=== PATIENT | female | born 2000 | race Caucasian/White ===

== ENCOUNTER 2022-03-31 22:28 | Emergency (ER) | payer BC, OTHER ==
--- OUTSIDE RECORDS SUMMARY | 2022-03-31 22:31 | XMS REPORT | Continuity of Care Document ---
:2000 Author Organization [facility] t Address [address] [place] [address] Care Team Providers Name Role Phone ROSANA CALLE Primary Care Physician Unavailable Rosana Calle Attending Clinician Unavailable Sanjuanita Rodriguez Attending Clinician Rhoda Berry RN Attending Clinician Unavailable SANJUANITA TRIPP Attending Clinician Unavailable SAMANTHA BOWEN Attending Clinician Unavailable Eric Dunham MD Attending Clinician ERIC DUNHAM Attending Clinician Unavailable Doctor Unassigned, [facility] Attending Clinician Unavailable Payers Payer Name Policy Type Policy Number Effective Date Expiration Date S ource Problems Condition Condition Condition Status Onset Resolution Last Treating Co mments Source Name Details Category Date Date Treatment Clinician Date No known No known Disease Unive rs active active ity of problems problems [facility] Allergies, Adverse Reactions, Alerts Allergy Allergy Status Severity Reaction(s) Onset Inactive Treating Comm ents Source Name Type Date Date Clinician NO KNOWN Drug Active Univers ALLERGIE Class ity of S [facility] Social History Social Habit Start Date Stop Date Quantity Comments Source Exposure to Not sure University SARS-CoV-2 [facility] (event) [place] History of Cigarette Smoker Universi ty of tobacco use [facility] Alcohol intake 2021-09-20 2021-09-[address] [facility] rsity of 00:00:00 00:00:00 of alcohol [facility] (finding) [place] Tobacco use and 2021-03-09 2021-03-09 Never used Universit y of exposure 00:00:00 00:00:00 [facility] Sex Assigned At [birth year] Universit y of 00:00:00 00:00:00 [facility] Smoking Status Start Date Stop Date Source Unknown if ever smoked [facility] Medical [place] Current every day smoker 2021-03-09 00:00:00 Uni versity [facility] Medications Ordered Filled Start Stop Current Ordering Indication Dosage Frequency Signature Comments Components Source Medication Medication Date Date Medication? Clinician (SIG) Name Name Cetirizine Yes Take by [facility] ([facility]) 10 3-21 mouth. ity of mg capsule 15:55: [address] Cetirizine Yes Take by [facility] (ZYRTE) 10 3-21 mouth. ity of mg capsule 15:55: [address] Cetirizine Yes Take by [facility] (ZYRTE) 10 3-21 mouth. ity of mg capsule 15:55: [address] Cetirizine Yes Take by [facility] (YRTE) 10 3-21 mouth. ity of mg capsule 15:55: [address] fluticasone Yes [id number] 2{spray Use 2 Univers propionate 3-21 } Sprays in ity of 50 00:00: each [place] mcg/actuati 00 nostril Medic al on nasal daily. Branch spray fexofenadin Yes [id number] 1{tbl} Take 1 Univers e-pseudoeph 3-21 tablet by ity of edrine 00:00: mouth 2 [place] (ANNA-D) 00 (two) Medical 60-120 mg times Branch per tablet daily. benzonatate Yes [id number] 100mg Take 1 Univers (TESSALON 3-21 capsule by ity of ANAIS) 100 00:00: mouth 3 [place] as mg capsule 00 (three) Medica l times Branch daily as needed for Cough. fluticasone Yes [id number] 2{spray Use 2 Univers propionate 3-21 } Sprays in ity of 50 00:00: each [place] mcg/actuati 00 nostril Medic al on nasal daily. Branch spray fexofenadin 0 Yes [id number] 1{tbl} Take 1 Univers e-pseudoeph 3-21 tablet by ity of edrine 00:00: mouth 2 [place] (ANNA-D) 00 (two) Medical 60-120 mg times Branch per tablet daily. benzonatate 2021-0 Yes [id number] 100mg Take 1 Univers (TESSALON 3-21 capsule by ity of PERLES) 100 00:00: mouth 3 [place] as mg capsule 00 (three) Medica l times Branch daily as needed for Cough. fluticasone 0 Yes [id number] 2{spray Use 2 Univers propionate 3-21 } Sprays in ity of 50 00:00: each [place] mcg/actuati 00 nostril Medic al on nasal daily. Branch spray fexofenadin 0 Yes [id number] 1{tbl} Take 1 Univers e-pseudoeph 3-21 tablet by ity of edrine 00:00: mouth 2 [place] (ANNA-D) 00 (two) Medical 60-120 mg times Branch per tablet daily. benzonatate 2021-0 Yes [id number] 100mg Take 1 Univers (TESSALON 3-21 capsule by ity of PERLES) 100 00:00: mouth 3 [place] as mg capsule 00 (three) Medica l times Branch daily as needed for Cough. fluticasone 2021-0 Yes [id number] 2{spray Use 2 Univers propionate 3-21 } Sprays in ity of 50 00:00: each [place] mcg/actuati 00 nostril Medic al on nasal daily. Branch spray fexofenadin 2021-0 Yes [id number] 1{tbl} Take 1 Univers e-pseudoeph 3-21 tablet by ity of edrine 00:00: mouth 2 [place] (ANNA-D) 00 (two) Medical 60-120 mg times Branch per tablet daily. benzonatate 2021-0 Yes [id number] 100mg Take 1 Univers (TESSALON 3-21 capsule by ity of PERLES) 100 00:00: mouth 3 [place] as mg capsule 00 (three) Medica l times Branch daily as needed for Cough. sulfamethox 2020- No [id number] 1{tbl} Take 1 Univers azole-trime 04-24 09-30 tablet by it y of thoprim 00:00: 04:59 mouth 2 [place] (BACTRIM 00 :00 (two) Medical DS) 800-160 times Branch mg per daily for tablet 7 days. doxycycline 2020- No [id number] 100mg Take 1 Univers hyclate 100 03-09 08- tablet by it y of mg tablet 00:00: 04:59 [place] 2 [place] :[place] (two) Medical times Branch daily for 14 days. PARoxetine Yes 10mg Take 10 mg U nivers 10 mg 7-14 by mouth ity of tablet 00:00: every [place] [address] morning. Medical Branch PARoxetine Yes 10mg Take 10 mg U nivers 10 mg 7-14 by mouth ity of tablet 00:00: every [place] morning. Medical Branch PARoxetine Yes 10mg Take 10 mg U nivers 10 mg 7-14 by mouth ity of tablet 00:00: every [place] [address] morning. Medical Branch PARoxetine Yes 10mg Take 10 mg U nivers 10 mg 7-14 by mouth ity of tablet 00:00: every [place] morning. Medical Branch PARoxetine Yes 10mg Take 10 mg U nivers 10 mg 7-14 by mouth ity of tablet 00:00: every [place] morning. Medical Branch PARoxetine Yes 10mg Take 10 mg U nivers 10 mg 7-14 by mouth ity of tablet 00:00: every [place] morning. Medical Branch AUROVELA FE Yes 1{tbl} Take 1 Un minnie 1-20, 28, 1 6-09 tablet by ity of mg-20 mcg 00:00: mouth [place] (21)/75 mg 00 daily. Medical (7) tablet Branch AUROVELA FE Yes 1{tbl} Take 1 Un minnie 1-20, 28, 1 6-09 tablet by ity of mg-20 mcg 00:00: mouth [place] (21)/75 mg 00 daily. Medical (7) tablet Branch AUROVELA FE Yes 1{tbl} Take 1 Un minnie 1-20, 28, 1 6-09 tablet by ity of mg-20 mcg 00:00: mouth [place] (21)/75 mg 00 daily. Medical (7) tablet Branch AUROVELA FE Yes 1{tbl} Take 1 Un minnie 1-20, 28, 1 6-09 tablet by ity of mg-20 mcg 00:00: mouth [place] (21)/75 mg 00 daily. Medical (7) tablet Branch AUROVELA FE Yes 1{tbl} Take 1 Un minnie 1-20, 28, 1 6-09 tablet by ity of mg-20 mcg 00:00: mouth [place] (21)/75 mg 00 daily. Medical (7) tablet Branch AUROVELA FE Yes 1{tbl} Take 1 Un minnie 1-20, 28, 1 6-09 tablet by ity of mg-20 mcg 00:00: mouth [place] (21)/75 mg 00 daily. Medical (7) tablet Branch Paxil Paxil 2018-08 Yes Rosana 1 tablet Common 1-15 [place] in [facility] 00:00: morning - [facility] naproxen Yes [id number] 375mg Take 1 U nivers 375 mg 1-31 tablet by ity of tablet 00:00: mouth 2 (two) Medical times Branch daily with meals. naproxen Yes [id number] 375mg Take 1 U nivers 375 mg 1-31 tablet by ity of tablet 00:00: mouth 2 (two) Medical times Branch daily with meals. naproxen Yes [id number] 375mg Take 1 U nivers 375 mg 1-31 tablet by ity of tablet 00:00: mouth 2 [place] (two) Medical times Branch daily with meals. naproxen Yes [id number] 375mg Take 1 U nivers 375 mg 1-31 tablet by ity of tablet 00:00: mouth 2 [place] 00 (two) Medical times Branch daily with meals. Lo Loestrin Lo Loestrin Yes Rosana TK 1 T PO Common Fe Fe [place] QD [facility] Zyrtec Zyrtec Yes Rosana 1 tablet Common Allergy Allergy [place] [facility] Immunizations Ordered Immunization Filled Immunization Date Status Commen ts Source Name Name Meningoccal MCV4 Meningoccal MCV4 2019-04-28 Completed Co mmon Spirit 00:00:00 [facility] Vital Signs Vital Name Observation Time Observation Value Comments Source Systolic blood 2021-10-21 20:55:00 103 mm[Hg] Univer sity of pressure [facility] Diastolic blood 2021-10-21 20:55:00 67 mm[Hg] Unive rsity of pressure [facility] Heart rate 2021-10-21 20:55:00 77 /min Universi ty of [facility] Body temperature 2021-10-21 20:55:00 36.56 Rosario Univ ersity of [facility] Branch Respiratory rate 2021-10-21 20:55:00 18 /min Univ ersity of [facility] Body height 2021-10-21 20:55:00 175.3 cm Universi ty of [place] Medical [place] Body weight 2021-10-21 20:55:00 63.549 kg Universi ty of [place] [facility] Branch BMI 2021-10-21 20:55:00 20.69 kg/m2 Universi ty of [place] [facility] Branch Oxygen saturation in 2021-10-21 20:55:00 97 /min University of Arterial blood by [facility] Pulse oximetry Branch Systolic blood 2021-03-09 16:22:00 101 mm[Hg] Univer sity of [facility] Diastolic blood 2021-03-09 16:22:00 66 mm[Hg] Unive rsity of pressure [facility] Heart rate 2021-03-09 16:22:00 90 /min Universi ty of [place] [facility] [place] Body temperature 2021-03-09 16:22:00 36.94 Rosario Univ ersity of [facility] Branch Respiratory rate 2021-03-09 16:22:00 16 /min Univ ersity of [facility] Branch Body height 2021-03-09 16:22:00 175.3 cm Universi ty of [place] [facility] Body weight 2021-03-09 16:22:00 68.04 kg Universi ty of [place] [facility] BMI 2021-03-09 16:22:00 22.15 kg/m2 Universi ty of [facility] Branch Oxygen saturation in 2021-03-09 16:22:00 98 /min University of Arterial blood by [facility] Pulse oximetry [place] Procedures Procedure Date / Time Performed Performing Clinician [facility] e ASSIGNMENT OF BENEFITS 2021-03-09 16:12:50 Doctor Unassigned, No [facility] Name Medical Branch Encounters Start End Encounter Admission Attending Care Care Encounter Source Date/Time Date/Time Type Type Clinicians Facility Department ID 2022-01-10 Outpatient [place], STLMLC STLC [id number] Common 08:40:00 Rosana 61738 [facility] 2021-08-28 Outpatient [place], STLMLC STLC [id number] Common 11:35:45 Rosana 23575 [facility] 2021-08-28 Outpatient [place], STLMLC STLC [id number] Common 11:14:19 Rosana 10930 [facility] 2022-01-07 2022-01-07 ambulatory STLC STLC [id number] Common 00:00:00 00:00:00 [facility] 2021-12-27 2021-12-27 ambulatory STLC STLC [id number] Common 00:00:00 00:00:00 [facility] 2021-11-17 2021-11-17 [facility] 1.2.840.114 [id number] Univers 00:00:00 00:00:00 [facility] [id number] i ty of [place] [id number] Anatoly as KOFI?BLEA [phone] [address] MEDICAL OFFICE BUILDING 2021-10-22 2021-10-22 Letter MERRY Berry 1.2.840.114 [id number] Univers 00:00:00 00:00:00 (Out) Rhoda [place] [id number] it y of [facility] 4.2.7.2.686 Anatoly as [id number] [place] [address] Branch 2021-10-21 2021-10-21 Urgent Makayla [facility] 1.2.840.114 [id number] Univers 16:00:00 16:20:00 Care [facility] [id number] i ty of [place] 4.2.7.2.686 Anatoly as KOFI?BLEA [id number] [address] MEDICAL OFFICE [facility] 2021-10-21 2021-10-21 Outpatient R [facility] [id number] Univers 16:00:00 16:17:28 SANJUANITA itopal o layne [facility] 2021-10-21 2021-10-21 Outpatient R [facility] [id number] Univers 16:00:00 16:00:00 [id number] [facility] 2021-10-21 2021-10-21 Refill [facility] 1.2.840.114 [id number] Univers 00:00:00 00:00:00 [facility] [id number] i ty of [place] 4.2.7.2.686 Anatoly as KOFI?BLEA [id number] [address] OFFICE [facility] 2021-07-09 2021-07-09 [facility] [id number] Univers 10:40:00 10:40:00 SAMANTHA [id number] [facility] 2021-04-29 2021-04-29 Letter [facility] 1.2.840.114 [id number] Univers 00:00:00 00:00:00 (Out) [facility] [id number] i ty of [place] 4.2.7.2.686 Anatoly as Kofi?Blea [id number] [address] Medical Office [facility] 2021-04-24 2021-04-24 Outpatient R [facility] [id number] Univers 13:00:00 13:00:00 [id number] [facility] 2021-04-24 2021-04-24 Outpatient R [facility] [id number] Univers 13:00:00 13:00:00 SANJUANITA martínezopal infante [facility] 2021-04-19 2021-04-19 Outpatient STLMLC STLMLC [id number] Common 00:00:00 00:00:00 [facility] 2021-04-19 2021-04-19 Outpatient STLMLC STLMLC [id number] Common 00:00:00 00:00:00 [facility] 2021-03-09 2021-03-09 Joy Dunham [facility] 1.2.840.114 [id number] Univers 11:15:26 11:35:26 Care [facility] [id number] it y of [place] 4.2.7.2.686 Anatoly as Professio [phone] [address] Office Building [facility] 2021-03-09 2021-03-09 Outpatient R CHARLA [facility] [id number] Univers 11:00:00 11:00:00 ERIC ity [facility] 2021-03-09 2021-03-09 Orders Doctor MERRY 1.2.840.114 [id number] Univers 00:00:00 00:00:00 Only Unassigned, FARRUKH [id number] [facility] 4.2.7.2.686 Anatoly as [phone] [facility] 009 [place] 2021-03-09 2021-03-09 Letter Doctor MERRY 1.2.840.114 [id number] Univers 00:00:00 00:00:00 (Out) Unassigned, FARRUKH [id number] [facility] 4.2.7.2.686 Anatoly as [phone] [facility] 044 [place] 2021-02-13 2021-02-13 Outpatient STLMLC STLMLC [id number] Common 00:00:00 00:00:00 [facility] 2021-01-29 2021-01-29 Outpatient STLMLC STLMLC [id number] Common 00:00:00 00:00:00 [facility] 2020-05-01 2020-05-01 Outpatient STLMLC STLMLC [id number] Common 00:00:00 00:00:00 [facility] 2020-02-15 2020-02-15 [facility] [id number] Common 15:15:00 15:15:00 [facility] 2020-02-15 2020-02-15 [facility] [id number] Common 15:00:00 15:00:[address] [facility] 2019-08-17 2019-08-17 [facility] [id number] Common 15:00:00 15:00:[address] [facility] 2019-07-21 2019-07-21 [facility] [id number] Common 14:00:00 14:00:[address] [facility] 2019-06-17 2019-06-17 [facility] [id number] Common 11:53:00 11:53:[address] [facility] 2019-06-10 2019-06-10 [facility] [id number] Common 13:00:00 13:00:[address] [facility] [address] [facility] 2019-04-28 2019-04-28 [facility] [id number] Common 08:20:00 08:20:[address] [facility] [address] [facility] 2018-09-07 2018-09-07 [facility] [id number] Common 16:04:00 16:04:00 [facility] 2018-09-07 2018-09-07 [facility] [id number] Common 10:13:00 10:13:00 [facility] 2018-09-02 2018-09-02 [facility] [id number] Common 11:14:00 11:14:00 [facility] 2018-08-08 2018-08-08 [facility] [id number] Common 13:30:00 13:30:00 t Urgent Urgent Care S pirit Care [facility] 2018-04-29 2018-04-29 [facility] [id number] Common 11:00:00 11:00:00 t [facility] Results This patient has no known results.
[2022-03-31] MEDS ORDERED: IBUPROFEN 200 MG TAB PO ONE (23:33)
[2022-03-31] MEDS ORDERED: IBUPROFEN 400 MG TAB ONE (23:34)
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
[2022-04-01 01:09] VITALS: TEMP 98.5
[2022-04-01 01:14] VITALS: BP 107/72; O2SAT 100
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
== END 2022-04-01 00:21 | disposition home or self-care (01) ==
LOC: ER 22:28
DX: S16.1XXA Strain of muscle, fascia and tendon at neck level, initial encounter (principal); S50.02XA Contusion of left elbow, initial encounter; V49.40XA Driver injured in collision with unspecified motor vehicles in traffic accident, initial encounter; F32.A Depression, unspecified
CPT/HCPCS: 70450; 71045; 72125; 99284

== ENCOUNTER 2022-11-27 05:53 | Emergency (ER) | payer BC ==
--- OUTSIDE RECORDS SUMMARY | 2022-11-27 05:58 | XMS REPORT | Continuity of Care Document ---
:1999 Author Organization [facility] t Address [address] [facility] [address] [place] [id number] Care Team Providers Name Role Phone ROSANA CALLE Primary Care Physician Unavailable Rosana Calle Attending Clinician Unavailable CHRIS MCCRARY Attending Clinician Unavailable Ebrahialissa POLISHER ALUMINUMChris Smith Attending Clinician Unknown, Attending Attending Clinician Unavailable Doctor Unassigned, [place] Attending Clinician Unavailable Provider, [facility] Attending Clinician Unavailable UNKNOWN, ATTENDING Attending Clinician Unavailable Sanjuanita Rodriguez Attending Clinician Rhoda Berry RN Attending Clinician Unavailable SANJUANITA TRIPP Attending Clinician Unavailable Eric Dunham MD Attending Clinician ERIC DUNHAM Attending Clinician Unavailable Payers Payer Name Policy Type Policy Number Effective Date Expiration Date S ource [employer] [place] [id number] 2018 00:00:00 [employer] [id number] 2016 Common Spiri t Blue Shield 00:00:00 [facility] Problems Condition Condition Condition Status Onset Resolution Last Treating Co mments Source Name Details Category Date Date Treatment Clinician Date Other Other Problem Active Common migraine migraine Spirit with with - [facility] status status [facility] migrainosu migrainosu Leigh kes s, not s, not Medical intractabl intractabl Ce nter e e [id number] IUD Problem Active Common contracept Spirit ion - [facility] Viral Other Problem Active Common disease viral Spirit agents as - [facility] the cause [facility] Medical classified Center elsewhere Seasonal Seasonal Problem Active Commo n allergic allergic Spirit rhinitis rhinitis, - [facility] unspecifie [facility] [id number] 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 [facility] [id number] Skin Problem Active Common infection [facility] [id number] Pelvic Problem Active Common pain [facility] [id number] Common Problem Active Common cold [facility] Dysthymia Dysthymic Problem Active Com mon disorder [facility] [id number] Cough Problem Active Common Spirit [facility] Irritable Irritable Problem Active Com mon bowel bowel Spirit syndrome syndrome, - [facility] unspecifie [facility] [id number] Encounter Problem Active Com mon for Spirit immunizati - [facility] on 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 - [facility] , single [facility] [id number] Marijuana Problem Active Com mon use [facility] [id number] Allergic Problem Active Commo n rhinitis, Spirit [facility]ifie [facility] y, Medical unspecifie Center d trigger No known No known Disease Unive rs active active ity of problems problems [facility] Allergies, Adverse Reactions, Alerts Allergy Allergy Status Severity Reaction(s) Onset Inactive Treating Comm ents Source Name Type Date Date Clinician NO KNOWN Drug Active Univers ALLERGIE Class ity of S [facility] Social History Social Habit Start Date Stop Date Quantity Comments Source Sex Assigned At Common Sp leobardo - [facility] History of Cigarette Smoker Universi ty of tobacco use [facility] Tobacco use and 2022-09-26 2022-09-26 User of smokeless Un iversity of exposure 00:00:00 00:00:00 tobacco [facility] Alcohol intake 2022-09-26 2022-09-26 Current drinker Unive rsity of 00:00:00 00:00:00 of alcohol [facility] (finding) [place] Tobacco Comment 2022-09-26 2022-09-26 vape Universit y of 00:00:00 00:00:00 [facility] Exposure to 2022-09-07 2022-09-17 Not sure University SARS-CoV-2 00:00:00 15:29:00 [facility] (event) [place] Smoking Status Start Date Stop Date Source Unknown if ever smoked Universit y of [facility] Smokes tobacco daily 2022-09-26 00:00:[address] [facility] [address] [facility] Medications Ordered Filled Start Stop Current Ordering Indication Dosage Frequency Signature Comments Components Source Medication Medication Date Date Medication? Clinician (SIG) Name Name maalox/diph 2022- Yes [id number] 15mL Take 15 mL Univers enhydrAMINE 09-26 by mouth ity of :lidocaine2 00:00: 05:59 in the [place] % viscous 00 :00 morning Medical 1:1:1 Susp and 15 mL Bran ch suspension in the evening. Do all this for 5 days. maalox/diph 2022- Yes [id number] 15mL Take 15 mL Univers enhydrAMINE 09-26 by mouth ity of :lidocaine2 00:00: 05:59 in the [place] as % viscous 00 :00 morning Medical 1:1:1 Susp and 15 mL Bran ch suspension in the evening. Do all this for 5 days. fluconazole 2022- Yes [id number] 150mg Take 1 Univers (DIFLUCAN) 2-15 03-10 tablet by ity of 150 mg 00:00: 05:59 mouth [place] tablet 00 :00 weekly for Medical 4 doses. Branch fluconazole 2022- Yes [id number] 150mg Take 1 Univers (DIFLUCAN) 2-15 03-10 tablet by ity of 150 mg 00:00: 05:59 mouth [place] tablet 00 :00 weekly for Medical 4 doses. Branch fluconazole 2022- Yes [id number] 150mg Take 1 Univers (DIFLUCAN) 2-15 03-10 tablet by ity of 150 mg 00:00: 05:59 mouth [place] tablet 00 :00 weekly for Medical 4 doses. Branch fluconazole 2022- Yes [id number] 150mg Take 1 Univers (DIFLUCAN) 2-15 03-10 tablet by ity of 150 mg 00:00: 05:59 mouth [place] tablet 00 :00 weekly for Medical 4 doses. Branch fluconazole 2022- Yes [id number] 150mg Take 1 Univers (DIFLUCAN) 2-15 03-10 tablet by ity of 150 mg 00:00: 05:59 mouth [place] tablet 00 :00 weekly for Medical 4 doses. Branch fluconazole 2022- Yes [id number] 150mg Take 1 Univers (DIFLUCAN) 2-15 03-10 tablet by ity of 150 mg 00:00: 05:59 mouth [place] tablet 00 :00 weekly for Medical 4 doses. Branch fluconazole 2022- Yes [id number] 150mg Take 1 Univers (DIFLUCAN) 2-15 03-10 tablet by ity of 150 mg 00:00: 05:59 mouth [place] tablet 00 :00 weekly for Medical 4 doses. Branch doxycycline 2022- Yes [id number] 100mg Take 1 Univers hyclate 100 2-15 -02 tablet by it y of mg tablet 00:00: 05:59 mouth in [place] 00 :00 the Medical morning Branch and 1 tablet in the evening. Do all this for 14 days. doxycycline 2022- Yes [id number] 100mg Take 1 Univers hyclate 100 2-15 03-02 tablet by it y of mg tablet 00:00: 05:59 mouth in [place] 00 :00 the Medical morning Branch and 1 tablet in the evening. Do all this for 14 days. doxycycline 2022- Yes [id number] 100mg Take 1 Univers hyclate 100 2-15 03-02 tablet by it y of mg tablet 00:00: 05:59 mouth in [place] 00 :00 the Medical morning Branch and 1 tablet in the evening. Do all this for 14 days. doxycycline 2022- Yes [id number] 100mg Take 1 Univers hyclate 100 2-15 03-02 tablet by it y of mg tablet 00:00: 05:59 mouth in [place] 00 :00 the Medical morning Branch and 1 tablet in the evening. Do all this for 14 days. doxycycline 2022- Yes [id number] 100mg Take 1 Univers hyclate 100 2-15 03-02 tablet by it y of mg tablet 00:00: 05:59 mouth in [facility] as 00 :00 the Medical morning Branch and 1 tablet in the evening. Do all this for 14 days. doxycycline 2022- Yes [id number] 100mg Take 1 Univers hyclate 100 2-15 03-02 tablet by it y of mg tablet 00:00: 05:59 mouth in [facility] as 00 :00 the Medical morning Branch and 1 tablet in the evening. Do all this for 14 days. doxycycline 2022- Yes [id number] 100mg Take 1 Univers hyclate 100 2-15 03-02 tablet by it y of mg tablet 00:00: 05:59 mouth in [facility] as 00 :00 the Medical morning Branch and 1 tablet in the evening. Do all this for 14 days. predniSONE 2021-08- No [id number] 40mg Take 2 Univers 20 mg 2-19 12-25 tablets by ity of tablet 00:00: 05:59 mouth in [place] 00 :00 the [facility] for 5 days. predniSONE 2021-08- No [id number] 40mg Take 2 Univers 20 mg 2-19 12-25 tablets by ity of tablet 00:00: 05:59 mouth in [place] 00 :00 the [facility] for 5 days. Cetirizine Yes Take by [facility] ([facility]) 10 3-21 mouth. ity of mg capsule 15:55: [address] Cetirizine Yes Take by [facility] ([facility]) 10 3-21 mouth. ity of mg capsule 15:55: [address] Cetirizine Yes Take by [facility] ([facility]) 10 3-21 mouth. ity of mg capsule 15:55: [address] Cetirizine Yes Take by [facility] ([facility]) 10 3-21 mouth. ity of mg capsule 15:55: [address] Cetirizine Yes Take by [facility] ([facility]) 10 3-21 mouth. ity of mg capsule 15:55: [address] Cetirizine Yes Take by [facility] ([facility]) 10 3-21 mouth. ity of mg capsule 15:55: [address] Cetirizine Yes Take by [facility] ers ([facility]) 10 3-21 mouth. ity of mg capsule 15:55: [address] Cetirizine Yes Take by [facility] ers ([facility]) 10 3-21 mouth. ity of mg capsule 15:55: [address] Cetirizine Yes Take by [facility] ers ([facility]) 10 3-21 mouth. ity of mg capsule 15:55: [address] Cetirizine Yes Take by [facility] ers ([facility]) 10 3-21 mouth. ity of mg capsule 15:55: [address] Cetirizine Yes Take by [facility] ers ([facility]) 10 3-21 mouth. ity of mg capsule 15:55: [address] Cetirizine Yes Take by [facility] ers ([facility]) 10 3-21 mouth. ity of mg capsule 15:55: [address] Cetirizine Yes Take by [facility] ers ([facility]) 10 3-21 mouth. ity of mg capsule 15:55: [address] Cetirizine Yes Take by [facility] ([facility]) 10 3-21 mouth. ity of mg capsule 15:55: [address] fluticasone Yes [id number] 2{spray Use 2 Univers propionate 3-21 } Sprays in ity of 50 00:00: each [place] mcg/actuati 00 nostril Medic al on nasal daily. Branch spray fexofenadin Yes [id number] 1{tbl} Take 1 Univers e-pseudoeph 3-21 tablet by ity of edrine 00:00: mouth 2 [place] (ANNA-D) 00 (two) Medical 60-120 mg times Branch per tablet daily. benzonatate Yes [id number] 100mg Take 1 Univers (TESSALON 3-21 capsule by ity of ANAIS) 100 00:00: mouth 3 [place] mg capsule 00 (three) Medica l times Branch daily as needed for Cough. fluticasone 0 Yes [id number] 2{spray Use 2 Univers propionate 3-21 } Sprays in ity of 50 00:00: each [place] mcg/actuati 00 nostril Medic al on nasal daily. Branch spray fexofenadin 0 Yes [id number] 1{tbl} Take 1 Univers e-pseudoeph 3-21 tablet by ity of edrine 00:00: mouth 2 [place] (ANNA-D) 00 (two) Medical 60-120 mg times Branch per tablet daily. benzonatate 2021-0 Yes [id number] 100mg Take 1 Univers (TESSALON 3-21 capsule by ity of PERLES) 100 00:00: mouth 3 [place] mg capsule 00 (three) Medica l times Branch daily as needed for Cough. fluticasone Yes [id number] 2{spray Use 2 Univers propionate 3-21 } Sprays in ity of 50 00:00: each [place] mcg/actuati 00 nostril Medic al on nasal daily. Branch spray fexofenadin 0 Yes [id number] 1{tbl} Take 1 Univers e-pseudoeph 3-21 tablet by ity of edrine 00:00: mouth 2 [place] (ANNA-D) 00 (two) Medical 60-120 mg times Branch per tablet daily. benzonatate 2021-0 Yes [id number] 100mg Take 1 Univers (TESSALON 3-21 capsule by ity of PERLES) 100 00:00: mouth 3 [place] mg capsule 00 (three) Medica l times Branch daily as needed for Cough. fluticasone 0 Yes [id number] 2{spray Use 2 Univers propionate 3-21 } Sprays in ity of 50 00:00: each [place] mcg/actuati 00 nostril Medic al on nasal daily. Branch spray fexofenadin 2021-0 Yes [id number] 1{tbl} Take 1 Univers e-pseudoeph 3-21 tablet by ity of edrine 00:00: mouth 2 [place] (ANNA-D) 00 (two) Medical 60-120 mg times Branch per tablet daily. benzonatate 2021-0 Yes [id number] 100mg Take 1 Univers (TESSALON 3-21 capsule by ity of PERLES) 100 00:00: mouth 3 [place] mg capsule 00 (three) Medica l times Branch daily as needed for Cough. fluticasone 2021-0 Yes [id number] 2{spray Use 2 Univers propionate 3-21 } Sprays in ity of 50 00:00: each [place] mcg/actuati 00 nostril Medic al on nasal daily. Branch spray fexofenadin 2021-0 Yes [id number] 1{tbl} Take 1 Univers e-pseudoeph 3-21 tablet by ity of edrine 00:00: mouth 2 [place] (ANAN-D) 00 (two) Medical 60-120 mg times Branch per tablet daily. benzonatate 2021-0 Yes [id number] 100mg Take 1 Univers (TESSALON 3-21 capsule by ity of PERLMelboss) 100 00:00: mouth 3 [place] mg capsule 00 (three) Medica l times Branch daily as needed for Cough. fluticasone 2021-0 Yes [id number] 2{spray Use 2 Univers propionate 3-21 } Sprays in ity of 50 00:00: each [place] mcg/actuati 00 nostril Medic al on nasal daily. Branch spray fexofenadin 2021-0 Yes [id number] 1{tbl} Take 1 Univers e-pseudoeph 3-21 tablet by ity of edrine 00:00: mouth 2 [place] (ANNA-D) 00 (two) Medical 60-120 mg times Branch per tablet daily. benzonatate 2021-0 Yes [id number] 100mg Take 1 Univers (TESSALON 3-21 capsule by ity of PERLMelboss) 100 00:00: mouth 3 [place] mg capsule 00 (three) Medica l times Branch daily as needed for Cough. fluticasone 2021-0 Yes [id number] 2{spray Use 2 Univers propionate 3-21 } Sprays in ity of 50 00:00: each [place] mcg/actuati 00 nostril Medic al on nasal daily. Branch spray fexofenadin 2021-0 Yes [id number] 1{tbl} Take 1 Univers e-pseudoeph 3-21 tablet by ity of edrine 00:00: mouth 2 [place] (ANNA-D) 00 (two) Medical 60-120 mg times Branch per tablet daily. benzonatate 2022-0 Yes [id number] 100mg Take 1 Univers (TESSALON 3-21 capsule by ity of PERLES) 100 00:00: mouth 3 [place] mg capsule 00 (three) Medica l times Branch daily as needed for Cough. fluticasone Yes [id number] 2{spray Use 2 Univers propionate 3-21 } Sprays in ity of 50 00:00: each [place] mcg/actuati 00 nostril Medic al on nasal daily. Branch spray fluticasone 0 Yes [id number] 2{spray Use 2 Univers propionate 3-21 } Sprays in ity of 50 00:00: each [place] mcg/actuati 00 nostril Medic al on nasal daily. Branch spray fexofenadin 0 Yes [id number] 1{tbl} Take 1 Univers e-pseudoeph 3-21 tablet by ity of edrine 00:00: mouth 2 [place] (ANNA-D) 00 (two) Medical 60-120 mg times Branch per tablet daily. benzonatate 0 Yes [id number] 100mg Take 1 Univers (TESSALON 3-21 capsule by ity of PERLMelboss) 100 00:00: mouth 3 [place] mg capsule 00 (three) Medica l times Branch daily as needed for Cough. fexofenadin Yes [id number] 1{tbl} Take 1 Univers e-pseudoeph 3-21 tablet by ity of edrine 00:00: mouth 2 [place] (ANNA-D) 00 (two) Medical 60-120 mg times Branch per tablet daily. benzonatate 0 Yes [id number] 100mg Take 1 Univers (TESSALON 3-21 capsule by ity of PERLES) 100 00:00: mouth 3 [place] mg capsule 00 (three) Medica l times Branch daily as needed for Cough. fluticasone 0 Yes [id number] 2{spray Use 2 Univers propionate 3-21 } Sprays in ity of 50 00:00: each [place] mcg/actuati 00 nostril Medic al on nasal daily. Branch spray fexofenadin 0 Yes [id number] 1{tbl} Take 1 Univers e-pseudoeph 3-21 tablet by ity of edrine 00:00: mouth 2 [place] (ANNA-D) 00 (two) Medical 60-120 mg times Branch per tablet daily. benzonatate 2021-0 Yes [id number] 100mg Take 1 Univers (TESSALON 3-21 capsule by ity of PERLES) 100 00:00: mouth 3 [place] mg capsule 00 (three) Medica l times Branch daily as needed for Cough. fluticasone 2021-0 Yes [id number] 2{spray Use 2 Univers propionate 3-21 } Sprays in ity of 50 00:00: each [place] mcg/actuati 00 nostril Medic al on nasal daily. Branch spray fexofenadin 2021-0 Yes [id number] 1{tbl} Take 1 Univers e-pseudoeph 3-21 tablet by ity of edrine 00:00: mouth 2 [place] (ANNA-D) 00 (two) Medical 60-120 mg times Branch per tablet daily. benzonatate 2021-0 Yes [id number] 100mg Take 1 Univers (TESSALON 3-21 capsule by ity of PERLES) 100 00:00: mouth 3 [place] mg capsule 00 (three) Medica l times Branch daily as needed for Cough. fluticasone 2021-0 Yes [id number] 2{spray Use 2 Univers propionate 3-21 } Sprays in ity of 50 00:00: each [place] mcg/actuati 00 nostril Medic al on nasal daily. Branch spray fexofenadin 2021-0 Yes [id number] 1{tbl} Take 1 Univers e-pseudoeph 3-21 tablet by ity of edrine 00:00: mouth 2 [place] (ANNA-D) 00 (two) Medical 60-120 mg times Branch per tablet daily. benzonatate 2021-0 Yes [id number] 100mg Take 1 Univers (TESSALON 3-21 capsule by ity of PERLES) 100 00:00: mouth 3 [place] mg capsule 00 (three) Medica l times Branch daily as needed for Cough. fluticasone 2021-0 Yes [id number] 2{spray Use 2 Univers propionate 3-21 } Sprays in ity of 50 00:00: each [place] mcg/actuati 00 nostril Medic al on nasal daily. Branch spray fexofenadin 2021-0 Yes [id number] 1{tbl} Take 1 Univers e-pseudoeph 3-21 tablet by ity of edrine 00:00: mouth 2 [place] (ANNA-D) 00 (two) Medical 60-120 mg times Branch per tablet daily. benzonatate Yes [id number] 100mg Take 1 Univers (TESSALON 3-21 capsule by ity of ANAIS) 100 00:00: mouth 3 [place] mg capsule 00 (three) Medica l times Branch daily as needed for Cough. fluticasone Yes [id number] 2{spray Use 2 Univers propionate 3-21 } Sprays in ity of 50 00:00: each [place] mcg/actuati 00 nostril Medic al on nasal daily. Branch spray fexofenadin Yes [id number] 1{tbl} Take 1 Univers e-pseudoeph 3-21 tablet by ity of edrine 00:00: mouth 2 [place] (ANNA-D) 00 (two) Medical 60-120 mg times Branch per tablet daily. benzonatate Yes [id number] 100mg Take 1 Univers (TESSALON 3-21 capsule by ity of ANAIS) 100 00:00: mouth 3 [place] mg capsule 00 (three) Medica l times Branch daily as needed for Cough. sulfamethox 2020- No [id number] 1{tbl} Take 1 Univers azole-trime - 09-30 tablet by it y of thoprim 00:00: 04:59 mouth 2 [place] (BACTRIM 00 :00 (two) Medical DS) 800-160 times Branch mg per daily for tablet 7 days. doxycycline 2020- No [id number] 100mg Take 1 Univers hyclate 100 807 08-22 tablet by it y of mg tablet 00:00: 04:59 mouth 2 [place] 00 :[place] (two) Medical times Branch daily for 14 days. PARoxetine Yes 10mg Take 10 mg U nivers 10 mg 7-14 by mouth ity of tablet 00:00: every [place] 00 morning. Medical Branch PARoxetine Yes 10mg Take 10 mg U nivers 10 mg 7-14 by mouth ity of tablet 00:00: every [place] 00 morning. Medical Branch PARoxetine 2021-0 Yes 10mg Take 10 mg U nivers 10 mg 7-14 by mouth ity of tablet 00:00: every [place] 00 morning. Medical Branch PARoxetine 2021-0 Yes 10mg Take 10 mg U nivers 10 mg 7-14 by mouth ity of tablet 00:00: every [place] 00 morning. Medical Branch PARoxetine 2021-0 Yes 10mg Take 10 mg U nivers 10 mg 7-14 by mouth ity of tablet 00:00: every [place] 00 morning. Medical Branch PARoxetine 2021-0 Yes 10mg Take 10 mg U nivers 10 mg 7-14 by mouth ity of tablet 00:00: every [place] 00 morning. Medical Branch PARoxetine 2021-0 Yes 10mg Take 10 mg U nivers 10 mg 7-14 by mouth ity of tablet 00:00: every [place] 00 morning. Medical Branch PARoxetine 2021-0 Yes 10mg Take 10 mg U nivers 10 mg 7-14 by mouth ity of tablet 00:00: every [place] morning. Medical Branch PARoxetine 1-0 Yes 10mg Take 10 mg U nivers 10 mg 7-14 by mouth ity of tablet 00:00: every [place] morning. Medical Branch PARoxetine 1-0 Yes 10mg Take 10 mg U nivers 10 mg 7-14 by mouth ity of tablet 00:00: every [place] 00 morning. Medical Branch PARoxetine 1-0 Yes 10mg Take 10 mg U nivers 10 mg 7-14 by mouth ity of tablet 00:00: every [place] morning. Medical Branch PARoxetine 2021-0 Yes 10mg Take 10 mg U nivers 10 mg 7-14 by mouth ity of tablet 00:00: every [place] 00 morning. Medical Branch PARoxetine 2021-0 Yes 10mg Take 10 mg U nivers 10 mg 7-14 by mouth ity of tablet 00:00: every [place] 00 morning. Medical Branch PARoxetine 2021-0 Yes 10mg Take 10 mg U nivers 10 mg 7-14 by mouth ity of tablet 00:00: every [place] 00 morning. Medical Branch PARoxetine 2021-0 Yes 10mg Take 10 mg U nivers 10 mg 7-14 by mouth ity of tablet 00:00: every [place] 00 morning. Medical Branch PARoxetine 2021-0 Yes 10mg Take 10 mg U nivers 10 mg 7-14 by mouth ity of tablet 00:00: every [place] 00 morning. Medical Branch AUROVELA FE Yes 1{tbl} [...] daily. Medical (7) tablet Branch AUROVELA FE 2021-0 Yes 1{tbl} Take 1 Un minnie 1-20, [...] mg 00 daily. Medical (7) tablet Branch Solumedrol Solumedrol 2019-0 No 125mL Common 125mg/2ml 125mg/2ml 1-15 Spiri t 00:00: - [facility] 00 [facility] Solumedrol Solumedrol 2019-0 No 125mL Common 125mg/2ml 125mg/2ml 1-15 Spiri t 00:00: - CHI [facility] Paxil Paxil 2018- Yes Rosana 1 tablet Common 1-15 Mobile in the Spirit 00:00: morning - [facility] naproxen 2018- Yes [id number] 375mg Take 1 U nivers 375 mg 1-31 tablet by ity of tablet 00:00: mouth (two) Medical times Branch daily with meals. naproxen Yes [id number] 375mg Take 1 U nivers 375 mg 1-31 tablet by ity of tablet 00:00: mouth (two) Medical times Branch daily with meals. naproxen Yes [id number] 375mg Take 1 U nivers 375 mg 1-31 tablet by ity of tablet 00:00: mouth (two) Medical times Branch daily with meals. naproxen Yes [id number] 375mg Take 1 U nivers 375 mg 1-31 tablet by ity of tablet 00:00: mouth (two) Medical times Branch daily with meals. naproxen Yes [id number] 375mg Take 1 U nivers 375 mg 1-31 tablet by ity of tablet 00:00: mouth (two) Medical times Branch daily with meals. naproxen Yes [id number] 375mg Take 1 U nivers 375 mg 1-31 tablet by ity of tablet 00:00: mouth (two) Medical times Branch daily with meals. naproxen Yes [id number] 375mg Take 1 U nivers 375 mg 1-31 tablet by ity of tablet 00:00: mouth (two) Medical times Branch daily with meals. naproxen Yes [id number] 375mg Take 1 U nivers 375 mg 1-31 tablet by ity of tablet 00:00: mouth 2 (two) Medical times Branch daily with meals. naproxen Yes [id number] 375mg Take 1 U nivers 375 mg 1-31 tablet by ity of tablet 00:00: mouth 2 (two) Medical times Branch daily with meals. naproxen Yes [id number] 375mg Take 1 U nivers 375 mg 1-31 tablet by ity of tablet 00:00: mouth 2 (two) Medical times Branch daily with meals. naproxen Yes [id number] 375mg Take 1 U nivers 375 mg 1-31 tablet by ity of tablet 00:00: mouth 2 (two) Medical times Branch daily with meals. naproxen Yes [id number] 375mg Take 1 U nivers 375 mg 1-31 tablet by ity of tablet 00:00: mouth 2 (two) Medical times Branch daily with meals. naproxen Yes [id number] 375mg Take 1 U nivers 375 mg 1-31 tablet by ity of tablet 00:00: mouth 2 (two) Medical times Branch daily with meals. naproxen Yes [id number] 375mg Take 1 U nivers 375 mg 1-31 tablet by ity of tablet 00:00: mouth 2 [place] (two) Medical times Branch daily with meals. Lo Loestrin Lo Loestrin Yes Rosana TK 1 T PO Common Fe Fe Mobile QD [facility] Zyrtec Zyrtec Yes Rosana 1 tablet Common Allergy Allergy Mobile [facility] Lo Loestrin Lo Loestrin No Lo Fe 1 MG-10 Fe 1 MG-10 Loestrin MCG / 10 MCG / 10 Fe 1 MG-10 MCG MCG MCG / 10 MCG Paxil 10 MG Paxil 10 MG No 1{table QD Paxil 10 t_in_th MG e_morni ng} ZyrTEC ZyrTEC No 1{table QD ZyrTEC Allergy 10 Allergy 10 t} Allergy 10 MG MG MG Aurovela Aurovela No 1{table QD Aurovela 1.5/30 1.5/30 t} 1.5/30 1.5-30 1.5-30 1.5-30 MG-MCG MG-MCG MG-MCG Paxil 10 MG Paxil 10 MG No 1{table QD Paxil 10 t_in_th MG e_morni ng} ZyrTEC ZyrTEC No 1{table QD ZyrTEC Allergy 10 Allergy 10 t} Allergy 10 MG MG MG ZyrTEC ZyrTEC No 1{table QD ZyrTEC Allergy 10 Allergy 10 t} Allergy 10 MG MG MG Aurovela Aurovela No 1{table QD Aurovela 1.12/30 1.530 t} 1.530 1.5-30 1.5-30 1.5-30 MG-MCG MG-MCG MG-MCG Paxil 10 MG Paxil 10 MG No 1{table QD Paxil 10 t_in_th MG e_morni ng} ZyrTEC ZyrTEC No 1{table QD ZyrTEC Allergy 10 Allergy 10 t} Allergy 10 MG MG MG Aurovela Aurovela No 1{table QD Aurovela 1.12/30 1.30 t} 1.12/30 1.5-30 1.5-30 1.5-30 MG-MCG MG-MCG MG-MCG Paxil 10 MG Paxil 10 MG No 1{table QD Paxil 10 t_in_th MG e_morni ng} Aurovela Aurovela No 1{table QD Aurovela 1.12/30 1.30 t} 1.12/30 1.5-30 1.5-30 1.5-30 MG-MCG MG-MCG MG-MCG PARoxetine PARoxetine No 1{table QD PARoxetine HCl 10 MG HCl 10 MG t_in_th HCl 10 MG e_morni ng} ZyrTEC ZyrTEC No 1{table QD ZyrTEC Allergy 10 Allergy 10 t} Allergy 10 MG MG MG ZyrTEC ZyrTEC No 1{table QD ZyrTEC Allergy 10 Allergy 10 t} Allergy 10 MG MG MG Aurovela Aurovela No 1{table QD Aurovela 1.12/30 1.30 t} 1.12/30 1.5-30 1.5-30 1.5-30 MG-MCG MG-MCG MG-MCG PARoxetine PARoxetine No 1{table QD PARoxetine HCl 10 MG HCl 10 MG t_in_th HCl 10 MG e_morni ng} Immunizations Ordered Immunization Filled Immunization Date Status Commen ts Source Name Name Solumedrol 125mg/2ml Solumedrol 125mg/2ml 2019-08-17 [facility]pleted [facility] Solumedrol 125mg/2ml Solumedrol 125mg/2ml 2019-08-17 Completed [facility] 16:24:00 - [facility] Solumedrol 125mg/2ml Solumedrol 125mg/2ml 2019-08-17 Completed [facility] 16:24:00 - [facility] Solumedrol 125mg/2ml Solumedrol 125mg/2ml 2019-08-17 Completed [facility] 16:24:00 - [facility] Meningoccal MCV4 Meningoccal MCV4 2019-04-28 Completed [facility] 15:08:[facility] - [facility] Meningoccal MCV4 Meningoccal MCV4 2019-04-28 Completed [facility]:08:[facility] - [facility] Meningoccal MCV4 Meningoccal MCV4 2019-04-28 Completed [facility]:08:[facility] - [facility] Meningoccal MCV4 Meningoccal MCV4 2019-04-28 Completed [facility]:08:[facility] - [facility] Meningoccal MCV4 Meningoccal MCV4 2019-04-28 Completed [facility] 15:08:[facility] - [facility] Meningoccal MCV4 Meningoccal MCV4 2019-04-28 Completed [facility] 15:08:00 - [facility] Meningoccal MCV4 Meningoccal MCV4 2019-04-28 Completed [facility] - [facility] Vital Signs Vital Name Observation Time Observation Value Comments Source Systolic blood 2022-09-26 22:35:00 107 mm[Hg] Univer sity of pressure [facility] Diastolic blood 2022-09-26 22:35:00 65 mm[Hg] Unive rsity of [facility] Heart rate 2022-09-26 22:35:00 57 /min [facility] Body temperature 2022-09-26 22:35:00 36.83 [facility] Res[facility] rate 2022-09-26 22:35:00 18 /min [facility] Body height 2022-09-26 22:35:00 170.2 cm [facility] Body weight 2022-09-26 22:35:00 69.4 kg [facility] BMI 2022-09-26 22:35:00 23.96 kg/m2 [facility] Oxygen saturation in 2022-09-26 22:35:00 98 /min [facility] Arterial blood by [facility] Pulse oximetry Branch Systolic blood 2022-09-17 21:30:00 124 mm[Hg] Univer sity of pressure [facility] Diastolic blood 2022-09-17 21:30:00 74 mm[Hg] Unive rsity of pressure [facility] Heart rate 2022-09-17 21:30:00 82 /min [facility] Body temperature 2022-09-17 21:30:00 36.94 Rosario [facility] Respiratory rate 2022-09-17 21:30:00 18 /min [facility] Body height 2022-09-17 21:30:00 170.2 cm [facility] Body weight 2022-09-17 21:30:00 68.357 kg [facility] BMI 2022-09-17 21:30:00 23.60 kg/m2 [facility] Oxygen saturation in 2022-09-17 21:30:00 98 /min [facility] Arterial blood by [facility] Pulse oximetry Branch Body temperature 2022-07-21 19:32:00 36.89 Rosario [facility] Respiratory rate 2022-07-21 19:32:00 16 /min [facility] Body height 2022-07-21 19:32:00 175.3 cm [facility] Body weight 2022-07-21 19:32:00 65.726 kg [facility] BMI 2022-07-21 19:32:00 21.40 kg/m2 [facility] Oxygen saturation in 2022-07-21 19:32:00 99 /min [facility]terial blood by [facility] Pulse oximetry Branch Systolic blood 2022-07-21 19:32:00 106 mm[Hg] Univer sity of pressure [facility] Diastolic blood 2022-07-21 19:32:00 63 mm[Hg] Unive rsity of pressure [facility] Heart rate 2022-07-21 19:32:00 73 /min [facility] Systolic blood 2021-10-21 20:55:00 103 mm[Hg] Univer sity of [facility] Diastolic blood 2021-10-21 20:55:00 67 mm[Hg] Unive rsity of [facility] Heart rate 2021-10-21 20:55:00 77 /min [facility] Body temperature 2021-10-21 20:55:00 36.56 Rosario [facility] Respiratory rate 2021-10-21 20:55:00 18 /min [facility] Body height 2021-10-21 20:55:00 175.3 cm [facility] Body weight 2021-10-21 20:55:00 63.549 kg [facility] BMI 2021-10-21 20:55:00 20.69 kg/m2 [facility] Oxygen saturation in 2021-10-21 20:55:00 97 /min [facility] blood by [place] [employer] isiah Pulse oximetry Branch Systolic blood 2021-03-09 16:22:00 101 mm[Hg] Univer sity of pressure [facility] Diastolic blood 2021-03-09 16:22:00 66 mm[Hg] Unive rsity of pressure [facility] Heart rate 2021-03-09 16:22:00 90 /min [facility] Body temperature 2021-03-09 16:22:00 36.94 Rosario [facility] Respiratory rate 2021-03-09 16:22:00 16 /min [facility] Body height 2021-03-09 16:22:00 175.3 cm [facility] Body weight 2021-03-09 16:22:00 68.04 kg [facility] BMI 2021-03-09 16:22:00 22.15 kg/m2 [facility] Oxygen saturation in 2021-03-09 16:22:00 98 /min [facility] Arterial blood by [employer] [facility] Pulse oximetry Branch height 2021-02-13 15:00:00 67 [in_i] [facility] weight 2021-02-13 15:00:00 150 [lb_av] [facility] bmi 2021-02-13 15:00:00 23.49 kg/m2 [facility] Procedures Procedure Date / Time Performed Performing Clinician [facility] mau [facility] PATIENT FINANCIAL 2022-09-26 22:23:51 Doctor Unassigned, No [facility] POLICY [facility] POCT MOLECULAR STREP 2022-07-21 19:40:00 Unknown, Attending [facility] CONSENT/REFUSAL FOR 2022-07-21 19:25:22 Doctor Unassigned, No [facility] DIAGNOSIS AND [facility] TREATMENT ASSIGNMENT OF BENEFITS 2022-07-21 19:25:06 Doctor Unassigned, No [facility] ASSIGNMENT OF BENEFITS 2021-03-09 16:12:50 Doctor Unassigned, No [facility] Encounters Start End Encounter Admission Attending Care Care Encounter Source Date/Time Date/Time Type Type Clinicians Facility Department ID 2022-01-10 [facility] [id number] Common 08:40:00 Rosana [id number] [facility] 2021-08-28 Outpatient Mobile, [facility] [id number] Common 11:35:45 Rosana [id number] [facility] 2021-08-28 Outpatient Mobile, [facility] [id number] Common 11:14:19 Rosana [id number] [facility] 2022-09-26 2022-09-26 Outpatient R LUIZA NVSG [facility] [id number] Univers 16:20:00 17:00:[address] [facility] 2022-09-26 2022-09-26 Urgent Chris Mccrary [facility] 1.2.840.114 [id number] Univers 16:20:00 17:00:04 Care Unknown, Attending [facility] [id number] yvan zayas [place] 4.2.7.2.686 Anatoly as KOFI?BLEA [phone] [place] dical [address] MEDICAL OFFICE BUILDING 2022-09-26 2022-09-26 Orders Doctor MERRY 1.2.840.114 [id number] Univers 00:00:00 00:00:00 Only Unassigned, FARRUKH 350.1.13.10 ity [place] [facility] 4.2.7.2.686 Anatoly as [phone] [address] 2022-09-26 2022-09-26 Letter ANJEL Mccrary 1.2.840.114 [id number] Univers 00:00:00 00:00:00 (Out) Rania HEALTH 350.1.13.10 it y of [place] 4.2.7.2.686 Anatoly as KOFI?BLEA [id number] [address] MEDICAL OFFICE [facility] 2022-09-19 2022-09-19 Letter Provider, [facility] [id number] Univers 00:00:00 00:00:00 (Out) Ang HEALTH 350.1.13.10 it y of Urgent Care [place] 4.2.7.2.686 [place] KOFI?BLEA [id number] [address] MEDICAL OFFICE [facility] 2022-09-18 2022-09-18 Letter Luiza NVSG 1.2.840.114 [id number] Univers 00:00:00 00:00:00 (Out) Rania HEALTH 350.1.13.10 it y of [place] 4.2.7.2.686 Anatoly as KOFI?BLEA [id number] [address] OFFICE [facility] 2022-09-17 2022-09-17 Urgent Chris Mccrary [facility] 1.2.840.114 [id number] Univers 15:00:00 15:20:00 Care Unknown, Attending HEALTH 350.1.13.10 ity of [place] 4.2.7.2.686 Anatoly as KOFI?BLEA [id number] [address] OFFICE [facility] 2022-09-17 2022-09-17 Outpatient R ANJEL MCCRARY [facility] [id number] Univers 15:00:00 15:00:[address] [facility] 2022-09-17 2022-09-17 Letter Luiza NVSG 1.2.840.114 [id number] Univers 00:00:00 00:00:00 (Out) [facility] 350.1.13.10 it y [facility] 4.2.7.2.686 Anatoly as KOFI?BLEA [phone] [address] MEDICAL OFFICE [facility] 2022-07-23 2022-07-23 Outpatient R UNKNOWN, [facility] [id number] Univers 16:00:00 16:00:00 ATTENDING ity of [facility] 2022-07-21 2022-07-21 [facility] 1.2.840.114 [id number] Univers 13:20:00 13:40:00 Care Unknown, [facility] HEALTH 350.1.13.10 ity of [place] 4.2.7.2.686 Anatoly as KOFI?BLEA [id number] [address] MEDICAL OFFICE [facility] 2022-07-21 2022-07-21 Outpatient R LUIZA, [facility] [id number] Univers 13:20:00 13:20:00 [facility] ity [facility] 2022-07-21 2022-07-21 Letter Luiza [facility] 1.2.840.114 [id number] Univers 00:00:00 00:00:00 (Out) [facility] 350.1.13.10 it y of [place] 4.2.7.2.686 Anatoly as KOFI?BLEA [phone] [address] MEDICAL OFFICE [facility] 2022-07-21 2022-07-21 Orders Doctor SOUSA 1.2.840.114 [id number] Univers 00:00:00 00:00:00 Only Unassigned, FARRUKH 350.1.13.[address] [place] [facility] 4.2.7.2.686 Anatoly as [id number] [address] 2022-01-07 2022-01-07 [facility] [id number] Co mmon 00:00:00 00:00:00 [facility] 2021-12-27 2021-12-27 [facility]TEL[facility] [id number] Co mmon 00:00:00 00:00:00 [facility] 2021-11-17 2021-11-17 Refill [facility] 1.2.840.114 [id number] Univers 00:00:00 00:00:00 Sanju[facility]ita HEALTH 350.1.13.10 i ty of [place] 4.2.7.2.686 Anatoly as KOFI?BLEA [id number] [address] MEDICAL OFFICE BUILDING 2021-10-22 2021-10-22 Letter MERRY Berry 1.2.840.114 [id number] Univers 00:00:00 00:00:00 (Out) Rhoda [place] 350.1.13.10 it y of HOSPITAL 4.2.7.2.686 Anatoly as [id number] [address] 2021-10-21 2021-10-21 Urgent [facility] 1.2.840.114 [id number] Univers 16:00:00 16:20:00 Care [facility] 350.1.13.10 i ty of [facility] 4.2.7.2.686 Anatoly as KOFI?BLEA [phone] [address] OFFICE [facility] 2021-10-21 2021-10-21 [facility] [id number] Univers 16:00:00 16:17:28 SANJUANITA santoro o f [facility] 2021-10-21 2021-10-21 [facility] 1.2.840.114 [id number] Univers 00:00:00 00:00:00 [facility] 350.1.13.10 i ty of [place] 4.2.7.2.686 Anatoly as KOFI?BLEA [id number] [address] OFFICE [facility] 2021-04-29 2021-04-29 Letter [facility] 1.2.840.114 [id number] Univers 00:00:00 00:00:00 (Out) [facility] 350.1.13.10 [place] 4.2.7.2.686 Anatoly as Kofi?Blea [phone] [address] Medical Office Building 2021-04-24 2021-04-24 Outpatient R QASIM [facility] [id number] Univers 13:00:00 13:00:00 SANJUANITA santoro o f [facility] 2021-04-19 2021-04-19 OFFICE STLMLC STLC [id number] Co mmon 00:00:00 00:00:00 [facility] PT - [facility] LEVEL 1 [facility] 2021-04-19 2021-04-19 [facility] [id number] Co mmon 00:00:00 00:00:00 [facility] - [facility] 2021-03-09 2021-03-09 [facility] 1.2.840.114 [id number] Univers 11:15:26 11:35:26 [facility] 350.1.13.10 [place] 4.2.7.2.686 Anatoly as Professio [id number] [address] Office Building One 2021-03-09 2021-03-09 Outpatient R BASIM [facility] [id number] Univers 11:00:00 11:00:00 ERIC ity of [facility] 2021-03-09 2021-03-09 Orders Doctor MERRY 1.2.840.114 [id number] Univers 00:00:00 00:00:00 Only Unassigned, FARRUKH 350.1.13.10 ity [place] HOSPITAL 4.2.7.2.686 Anatoly as [phone] [facility] [address] 2021-03-09 2021-03-09 Letter Doctor MERRY 1.2.840.114 [id number] Univers 00:00:00 00:00:00 (Out) Unassigned, FARRUKH 350.1.13.10 ity [place] HOSPITAL 4.2.7.2.686 Anatoly as [id number] [facility] [address] 2021-02-13 2021-02-[address] [facility] [id number] Co mmon 00:00:00 00:00:00 VISIT EST [facility] it PT LEVEL 3 - [facility] 2021-01-29 2021-01-29 [facility] [id number] Co mmon 00:00:00 00:00:00 [facility] 2020-05-01 2020-05-01 [address] [facility] [id number] Common 00:00:00 00:00:00 [facility] 2020-02-15 2020-02-15 [facility] [id number] Common 15:15:00 15:15:[address] [facility] 2020-02-15 2020-02-15 [facility] [id number] Common 15:00:00 15:00:[address] [facility] 2019-08-17 2019-08-17 [facility] [id number] Common 15:00:00 15:00:[address] [facility] 2019-07-21 2019-07-21 [facility] [id number] Common 14:00:00 14:00:[address] [facility] 2019-06-17 2019-06-17 [facility] [id number] Common 11:53:00 11:53:[address] [facility] 2019-06-10 2019-06-10 [facility] [id number] Common 13:00:00 13:00:[address] [facility] 2019-04-28 2019-04-28 [facility] [id number] Common 08:20:00 08:20:[address] [facility] 2018-09-07 2018-09-07 [facility] [id number] Common 16:04:00 16:04:00 [facility] 2018-09-07 2018-09-07 [facility] [id number] Common 10:13:00 10:13:00 [facility] 2018-09-02 2018-09-02 [facility] [id number] Common 11:14:00 11:14:00 [facility] 2018-08-08 2018-08-08 [facility] [id number] Common 13:30:00 13:30:00 t Urgent [facility] 2018-04-29 2018-04-29 [facility] [id number] Common 11:00:00 11:00:[address] [facility] it Road [facility] Results Test Description Test Time Test Comments Results Result Comments Source POCT MOLECULAR STREP 2022-07-21 19:48:31 Test Item Value Reference Range Interpretation Comme nts POCT Molecular Strep (test code = 66720-6) Negative Negative Lab Interpretation (test code = 72126-5) Normal [facility] [id number] 00:00:00 Test Item Value Reference Range Interpretation Comments Result (test code = 95862-9) Negative SARS-COV 2 AntigenSARS-COV 2 Antigen
[2022-11-27] MEDS ORDERED: ALBUTEROL 2.5 MG/3 ML NEB SOL ONE (07:52)
[2022-11-27] MEDS ORDERED: predniSONE 20 MG TAB ONE (07:52)
[2022-11-27] MEDS ORDERED: IPRATROPIUM BROM 0.5MG/2.5ML ONE (07:53)
--- NOTE | 2022-11-27 08:31 | ER ---
Nurse's Notes [facility] Name: Gloria Bacon Age: 22 yrs Sex: Female : 2000 Arrival Date: 11/27/2022 Time: 05:53 Bed 12 Private MD: Diagnosis: Wheezing;Cough Presentation: 11/27 07:01 Chief complaint: Patient states: Heartburn, cough, throat pain for awhile. Coronavirus ll1 screen: Client denies travel out of the [place] in the last 14 days. congestion, cough unrelated to allergies, fatigue, headache, nausea, vomiting. Client presents with at least one sign or symptom that may indicate coronavirus-19. Standard/surgical mask placed on the client. Ebola Screen: Patient denies travel to an Ebola-affected area in the 21 days before illness onset. Initial Sepsis Screen: Does the patient meet any 2 criteria? No. Patient's initial sepsis screen is negative. Does the patient have a suspected source of infection? Yes: Productive cough/pneumonia. Risk Assessment: Do you want to hurt yourself or someone else? Patient reports no desire to harm self or others. Onset of symptoms was November 13, 2022. 07:01 Method Of Arrival: Ambulatory ll1 07:01 Acuity: PERLA 3 ll1 Triage Assessment: 07:03 General: Appears in no apparent distress. Behavior is calm, cooperative, appropriate ll1 for age. Pain: Complains of pain in throat Quality of pain is described as aching. EENT: Reports pain when swallowing. Respiratory: Reports shortness of breath cough that is. GI: Reports nausea. Historical: - Allergies: 07:02 No Known Allergies; ll1 - PMHx: 07:02 Anxiety; Depression; ll1 - Immunization history:: Adult Immunizations up to date. Assessment: 07:55 Reassessment: No changes from previously documented assessment. Patient and/or family ll1 updated on plan of care and expected duration. Pain level reassessed. Patient is alert, oriented x 3, equal unlabored respirations, skin warm/dry/pink. 08:45 Reassessment: Patient appears in no apparent distress at this time. Patient and/or ss family updated on plan of care and expected duration. Pain level reassessed. Patient is alert, oriented x 3, equal unlabored respirations, skin warm/dry/pink. Vital Signs: 07:01 BP 153 / 86; Pulse 84; Resp 16; Temp 98.2; Pulse Ox 97% ; ll1 ED Course: 05:56 Patient arrived in ED. ja2 06:04 Prince Gardiner MD is Attending Physician. roberto 06:36 Chest Pa And Lat (2 Views) XRAY In Process Unspecified. EDMS 07:02 Triage completed. ll1 07:04 Arm band placed on. ll1 07:06 Renard Arrieta DO is Attending Physician. ms3 07:17 Attending Physician role handed off by Renard Arrieta DO roberto 07:17 Prince Gardiner MD is Attending Physician. roberto 07:21 Renard Arrieta DO is Attending Physician. ms3 07:50 Patient placed in an exam room, on a stretcher. ll1 08:30 Aramis Marina DO is Referral Physician. ms3 08:44 Geovanna López, MARY is Primary Nurse. ss 08:44 No provider procedures requiring assistance completed. Patient did not have IV access ss during this emergency room visit. Administered Medications: 07:22 CANCELLED (Physician Discretion): AZITHromycin PO 500 mg PO once ll1 07:22 CANCELLED (Physician Discretion): DuoNeb Nebulize (2.5 mg - 0.5 mg) 3 ml Nebulizer once ll1 07:51 Drug: predniSONE PO 40 mg Route: PO; ll1 08:45 Follow up: Response: No adverse reaction ss 07:55 Drug: Ipratropium Inhalation Aerosol 0.5 mg Route: Inhalation; ll1 07:55 Drug: DuoNeb Nebulize (3:1) (2.5 mg - 0.5 mg) 3 ml Route: Nebulizer; ll1 08:45 Follow up: Response: No adverse reaction ss Outcome: 08:31 Discharge ordered by . ms3 08:44 Discharged to home ambulatory. ss 08:44 Condition: good 08:44 Discharge instructions given to patient, family, Instructed on discharge instructions, follow up and referral plans. medication usage, Demonstrated understanding of instructions, follow-up care, medications, Prescriptions given X 2. 08:46 Patient left the ED. ss Signatures: Dispatcher [employer] EDTX Prince Gardiner MD MD cha Smirch, Shelby, RN RN Liam Lozada RN RN ll1 Renard Arrieta DO DO ms3 Ivanna Schroeder2 Corrections: (The following items were deleted from the chart) 07:04 07:01 BP 153 / 86; ll1 ll1 07:05 07:01 BP 153 / 86; Pulse 84bpm; Resp 16bpm; Pulse Ox 97%; ll1 ll1
--- NOTE | 2022-11-27 08:31 | EDPHYS ---
Physician Documentation [facility] Name: Gloria Bacon Age: 22 yrs Sex: Female : 2000 Arrival Date: 11/27/2022 Time: 05:53 Bed 12 Private MD: ED Physician Renard Arrieta HPI: 11/27 07:23 This 22 yrs old Female presents to ER via Ambulatory with complaints of Coughing Blood, ms3 Sore Throat. 07:23 22-year-old female with past medical history of anxiety and depression presents with ms3 her mother for cough, throat pain, heartburn has been going on for 1-1/2 years intermittently. Patient states for the last 1 and half days her symptoms have returned. Patient was given pantoprazole from urgent care. Patient notes she is also wheezing and coughing up yellow sputum. Patient denies fevers or chills. Patient states her discomfort at this time is a 2/10. Historical: - Allergies: 07:02 No Known Allergies; ll1 - PMHx: 07:02 Anxiety; Depression; ll1 - Immunization history:: Adult Immunizations up to date. ROS: 07:23 Constitutional: Negative for fever, and chills. Neck: Negative for injury, pain, and ms3 swelling. 07:23 Cardiovascular: Negative for chest pain, and palpitations. 07:23 MS/Extremity: Negative for injury and deformity. 07:23 Cardiovascular: 07:23 Respiratory: Positive for cough, with yellow sputum. 07:23 All other systems are negative. Exam: 07:23 Constitutional: This is a well developed, well nourished patient who is awake, alert, ms3 and in no acute distress. Head/Face: Normocephalic, atraumatic. Neck: Trachea midline, no cervical lymphadenopathy. Supple, full range of motion without nuchal rigidity, or vertebral point tenderness. No Meningismus. Chest/axilla: Normal chest wall appearance and motion. Nontender with no deformity. Cardiovascular: Regular rate and rhythm with a normal S1 and S2. No gallops, murmurs, or rubs. Normal PMI, no JVD. No pulse deficits. Abdomen/GI: Soft, non-tender, with normal bowel sounds. No distension or tympany. No guarding or rebound. No evidence of tenderness throughout. 07:23 MS/ Extremity: Pulses equal, no cyanosis. Neurovascular intact. Full, normal range of motion. 07:23 Respiratory: the patient does not display signs of respiratory distress, Respirations: no acute changes, Breath sounds: wheezing: expiratory that is mild, is heard diffusely. Vital Signs: 07:01 BP 153 / 86; Pulse 84; Resp 16; Temp 98.2; Pulse Ox 97% ; ll1 MDM: 07:15 Patient medically screened. ms3 07:23 Differential diagnosis: Allergic rhinitis, bronchitis, viral syndrome. ms3 08:38 Data reviewed: vital signs, nurses notes, radiologic studies, plain films, and as a ms3 result, I will discharge patient. I considered the following discharge prescriptions or medication management in the emergency department Medications were administered in the Emergency Department. See MAR. Independent interpretation of the following test(s) in the Emergency Department X-Ray: My interpretation is CXR image reviewed by me do not show PNA. Counseling: I had a detailed discussion with the patient and/or guardian regarding: the historical points, exam findings, and any diagnostic results supporting the discharge/admit diagnosis, radiology results, the need for outpatient follow up, to return to the emergency department if symptoms worsen or persist or if there are any questions or concerns that arise at home. Medication response: albuterol nebulizer treatment(s) relieved the patient's symptoms. The patient is no longer wheezing. Response to treatment: the patient's symptoms have markedly improved after treatment, and as a result, I will discharge patient. ED course: Patient to follow-up with primary care physician in 2 to 3 days. Patient understands and agrees with plan. All questions were answered. Return precautions discussed include worsening symptoms, or any other concerns. On reevaluation patient's wheezing resolved, no respiratory distress noted, patient is alert and orient x4, ambulatory emergency primary, speaking full sentences. 11/27 06:06 Order name: Chest Pa And Lat (2 Views) XRAY roberto Administered Medications: 07:22 CANCELLED (Physician Discretion): AZITHromycin PO 500 mg PO once ll1 07:22 CANCELLED (Physician Discretion): DuoNeb Nebulize (2.5 mg - 0.5 mg) 3 ml Nebulizer once ll1 07:51 Drug: predniSONE PO 40 mg Route: PO; ll1 08:45 Follow up: Response: No adverse reaction ss 07:55 Drug: Ipratropium Inhalation Aerosol 0.5 mg Route: Inhalation; ll1 07:55 Drug: DuoNeb Nebulize (3:1) (2.5 mg - 0.5 mg) 3 ml Route: Nebulizer; ll1 08:45 Follow up: Response: No adverse reaction ss Disposition Summary: 11/27/22 08:31 Discharge Ordered Location: Home ms3 Condition: Stable ms3 Diagnosis - Wheezing ms3 - Cough ms3 Followup: ms3 - With: Aramis Marina DO - When: 2 - 3 days - Reason: Re-evaluation by your physician Discharge Instructions: - Discharge Summary Sheet ms3 - Cough, Adult ms3 Forms: - Medication Reconciliation Form ms3 - Thank You Letter ms3 - Antibiotic Education ms3 - Prescription Opioid Use ms3 Prescriptions: - albuterol sulfate 90 mcg/actuation Inhalation HFA Aerosol Inhaler - inhale 2 puff by INHALATION route every 4 to 6 hours as needed for ms3 bronchospasm; administer via ventilator; 1 unit; Refills: 0, Product Selection Permitted - Prednisone 20 mg Oral Tablet - take 2 tablets by ORAL route once daily for 5 days; 10 tablet; Refills: 0, ms3 Product Selection Permitted Signatures: Dispatcher [employer] EDMS Prince Gardiner MD MD cha Lewis, Lynsay, RN RN 1 Renard Arrieta DO DO ms3 Geovanna López RN Corrections: (The following items were deleted from the chart) 07:22 06:06 AZITHromycin PO 500 mg PO once ordered. roberto [facility] 07:22 07:11 DuoNeb Nebulize (2.5 mg - 0.5 mg) 3 ml Nebulizer once ordered. ms3 ll1 07:34 06:06 Urinalysis+U.LAB.BRZ ordered. EDMS EDMS 07:34 06:06 Test, Urine+UC.LAB.BRZ ordered. EDMS EDMS 07:34 06:06 Influenza Screen (A \T\ B)+BA.LAB.BRZ ordered. EDMS EDMS 07:34 06:06 SARS-COV-2 Antigen Rapid+I.LAB.BRZ ordered. EDMS EDMS 07:34 06:06 Group A Streptococcus Rapid Sc+BA.LAB.BRZ ordered. EDMS EDMS
--- NOTE | 2022-11-27 08:52 | RAD REPORT ---
EXAM DESCRIPTION: RAD - Chest Pa And Lat (2 Views) - 11/27/2022 6:34 am CLINICAL HISTORY: Congestion;Cough Chest pain. COMPARISON: Chest Single View dated 03/31/2022; CHEST PA AND LAT 2 VIEW dated 01/31/2011 FINDINGS: The lungs are clear. The heart is normal in size. No displaced fractures. IMPRESSION: No acute or concerning finding suspected.
[2022-11-27 09:12] VITALS: BP 153/86; TEMP 98.2; O2SAT 97
== END 2022-11-27 08:46 | disposition home or self-care (01) ==
LOC: ER 05:53
DX: R05.9 Cough, unspecified (principal); R06.2 Wheezing
CPT/HCPCS: 71046; J7512; J7613; J7644

== ENCOUNTER 2023-05-18 09:11 | Emergency (ER) | payer BC ==
--- OUTSIDE RECORDS SUMMARY | 2023-05-18 09:16 | XMS REPORT | Continuity of Care Document ---
:2000 Author Organization [facility] t Address [address] [place] [address] [place] [id number] Care Team Providers Name Role Phone ROSANA CALLE Primary Care Physician Unavailable Rosana Calle Attending Clinician Unavailable JANENE JUSTICE Attending Clinician Unavailable Janene Justice DO Attending Clinician Anderson JULIEN Attending Clinician Unavailable Anderson Mendoza Attending Clinician CHRIS JARRETT Attending Clinician Unavailable Chris Oconnor Attending Clinician Unknown, Attending Attending Clinician Unavailable Doctor Unassigned, [place] Attending Clinician Unavailable Provider, [facility] Attending Clinician Unavailable UNKNOWN, ATTENDING Attending Clinician Unavailable Sanjuanita Rodriguez Attending Clinician Rhoda Berry RN Attending Clinician Unavailable SANJUANITA TRIPP Attending Clinician Unavailable Eric Stallworth MD Attending Clinician ERIC STALLWORTH Attending Clinician Unavailable Payers Payer Name Policy Type Policy Number Effective Date Expiration Date Rickie ch [employer] [place] [id number] 2018 00:00:00 [employer] 6 [id number] 2016 Common Spiri t Blue Shield of 00:00:00 - [facility] Problems Condition Condition Condition Status Onset Resolution Last Treating Co mments Source Name Details Category Date Date Treatment Clinician Date Other Other Problem Common migraine migraine Spirit with with - [facility] status status St migrainosu migrainosu Leigh kes s, not s, not Medical intractabl intractabl Ce nter e e Seasonal Seasonal Problem Commo n allergic allergic Spirit rhinitis rhinitis, - [facility]I unspecifie [facility] [id number] [place] Problem Common simplex Spirit chronicus - [facility] Irritable Irritable 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 Allergies, Adverse Reactions, Alerts Allergy Allergy Status Severity Reaction(s) Onset Inactive Treating Comm ents Source Name Type Date Date Clinician NO KNOWN Drug Active Univers ALLERGIE Class ity of S [facility] Social History Social Habit Start Date Stop Date Quantity Comments Source Sex Assigned At Common Sp leobardo - [facility] History of tobacco Cigarette Smoker University of use [facility] Gender identity Universit y of [facility] Sexual orientation Univer sity of [facility] Alcohol intake 2023-03-08 2023-03-08 Current drinker Unive rsity of 00:00:00 00:00:00 of alcohol [facility] Branch Tobacco use and 2022-09-26 2022-09-26 User of Universit y of exposure 00:00:00 00:00:00 smokeless [facility] tobacco Branch Tobacco Comment 2022-09-26 2022-09-26 vape Universit y of 00:00:00 00:00:00 [facility] Exposure to 2022-09-07 2022-09-17 Not sure University SARS-CoV-2 (event) 00:00:00 15:29:00 [facility] History of Social 2019 2019 Univers ity of function 00:00:00 00:00:00 [facility] Smoking Status Start Date Stop Date Source Unknown if ever smoked Universit y of [facility] Smokes tobacco daily 2022-09-26 00:00:[address] [facility] Medications Ordered Filled Start Stop Current Ordering Indication Dosage Frequency Signature Comments Components Source Medication Medication Date Date Medication? Clinician (SIG) Name Name NaCl 0.9% 2022- No 1000mL at 999 Uni vers (NS) bolus 8-10 08-10 mL/hr, ity of infusion 14:30: 15:00 1,000 mL, [place] 1,000 mL 00 :00 IV Medical Infusion, Branch ONCE, 1 dose, On Jody 03/12/23 at 0930, BE ondansetron Yes [id number] 4mg Take 1 Univers 4 mg 8-06 tablet by ity of disintegrat 00:00: mouth [place] ing tablet 00 every 8 Medica l (eight) Branch hours as needed for Nausea and Vomiting (N/V). ondansetron Yes [id number] 4mg Take 1 Univers 4 mg 8-06 tablet by ity of disintegrat 00:00: mouth [place] ing tablet 00 every 8 Medica l (eight) Branch hours as needed for Nausea and Vomiting (N/V). maalox/diph 2022- No [id number] 15mL Take 15 mL Univers enhydrAMINE 09-26 by mouth ity of :lidocaine2 00:00: 05:59 in the [place] % viscous 00 :00 morning Medical 1:1:1 Susp and 15 mL Bran ch suspension in the evening. Do all this for 5 days. maalox/diph 2022- No [id number] 15mL Take 15 mL Univers enhydrAMINE 09-26 by mouth ity of :lidocaine2 00:00: 05:59 in the [place] % viscous 00 :00 morning Medical 1:1:1 Susp and 15 mL Bran ch suspension in the evening. Do all this for 5 days. fluconazole 2022-2022- No [id number] 150mg Take 1 Univers (DIFLUCAN) 2-15 03-10 tablet by ity of 150 mg 00:00: 05:59 mouth [place] tablet 00 :00 weekly for Medical 4 doses. Branch fluconazole 2022-2022- No [id number] 150mg Take 1 Univers (DIFLUCAN) 2-15 03-10 tablet by ity of 150 mg 00:00: 05:59 mouth [place] tablet 00 :00 weekly for Medical 4 doses. Branch fluconazole 2022-2022- No [id number] 150mg Take 1 Univers (DIFLUCAN) 2-15 03-10 tablet by ity of 150 mg 00:00: 05:59 mouth [place] tablet 00 :00 weekly for Medical 4 doses. Branch fluconazole 2022-2022- No [id number] 150mg Take 1 Univers (DIFLUCAN) 2-15 03-10 tablet by ity of 150 mg 00:00: 05:59 mouth [place] tablet 00 :00 weekly for Medical 4 doses. Branch fluconazole 2022-2022- No [id number] 150mg Take 1 Univers (DIFLUCAN) 2-15 03-10 tablet by ity of 150 mg 00:00: 05:59 mouth [place] tablet 00 :00 weekly for Medical 4 doses. Branch fluconazole 2022-2022- No [id number] 150mg Take 1 Univers (DIFLUCAN) 2-15 03-10 tablet by ity of 150 mg 00:00: 05:59 mouth [place] tablet 00 :00 weekly for Medical 4 doses. Branch fluconazole 2022- No [id number] 150mg Take 1 Univers (DIFLUCAN) 2-15 03-10 tablet by ity of 150 mg 00:00: 05:59 mouth [place] tablet 00 :00 weekly for Medical 4 doses. Branch doxycycline 2022-2022- No [id number] 100mg Take 1 Univers hyclate 100 -15 -02 tablet by it y of mg tablet 00:00: 05:59 mouth in [place] 00 :00 the Medical morning Branch and 1 tablet in the evening. Do all this for 14 days. doxycycline 2022-2022- No [id number] 100mg Take 1 Univers hyclate 100 2-15 03-02 tablet by it y of mg tablet 00:00: 05:59 mouth in [place] 00 :00 the Medical morning Branch and 1 tablet in the evening. Do all this for 14 days. doxycycline 2022-3- No [id number] 100mg Take 1 Univers hyclate 100 2-15 03-02 tablet by it y of mg tablet 00:00: 05:59 mouth in [place] 00 :00 the Medical morning Branch and 1 tablet in the evening. Do all this for 14 days. doxycycline 2022- No [id number] 100mg Take 1 Univers hyclate 100 2-15 03-02 tablet by it y of mg tablet 00:00: 05:59 mouth in [place] 00 :00 the Medical morning Branch and 1 tablet in the evening. Do all this for 14 days. doxycycline 2022- No [id number] 100mg Take 1 Univers hyclate 100 2-15 03-02 tablet by it y of mg tablet 00:00: 05:59 mouth in [place] 00 :00 the Medical morning Branch and 1 tablet in the evening. Do all this for 14 days. doxycycline 2022-2022- No [id number] 100mg Take 1 Univers hyclate 100 2-15 03-02 tablet by it y of mg tablet 00:00: 05:59 mouth in [place] 00 :00 the Medical morning Branch and 1 tablet in the evening. Do all this for 14 days. doxycycline 2022- No [id number] 100mg Take 1 Univers hyclate 100 2-15 03-02 tablet by it y of mg tablet 00:00: 05:59 mouth in [place] 00 :00 the Medical morning Branch and 1 tablet in the evening. Do all this for 14 days. predniSONE 2021-08- No [id number] 40mg Take 2 Univers 20 mg 2-19 12-25 tablets by ity of tablet 00:00: 05:59 mouth in [place] 00 :00 the Medical morning Branch for 5 days. predniSONE 2021-08- No [id number] 40mg Take 2 Univers 20 mg 2-19 12-25 tablets by ity of tablet 00:00: 05:59 mouth in [place] 00 :00 the Medical morning Branch for 5 days. Cetirizine Yes Take by Univ ers (ZYRTEC) 10 3-21 mouth. ity of mg capsule 15:55: [address] Cetirizine Yes Take by [facility] ers (ZYRTEC) 10 3-21 mouth. ity of mg capsule 15:55: [address] Cetirizine Yes Take by [facility] ers (ZYRTEC) 10 3-21 mouth. ity of mg capsule 15:55: [address] Cetirizine Yes Take by [facility] ers (ZYRTEC) 10 3-21 mouth. ity of mg capsule 15:55: [address] Cetirizine Yes Take by [facility] ers (ZYRTEC) 10 3-21 mouth. ity of mg capsule 15:55: [address] Cetirizine Yes Take by [facility] ers (ZYRTEC) 10 3-21 mouth. ity of mg capsule 15:55: [address] Cetirizine Yes Take by [facility] ers (ZYRTEC) 10 3-21 mouth. ity of mg capsule 15:55: [address] Cetirizine Yes Take by [facility] ers (ZYRTEC) 10 3-21 mouth. ity of mg capsule 15:55: [address] Cetirizine Yes Take by [facility] ers (ZYRTEC) 10 3-21 mouth. ity of mg capsule 15:55: [address] Cetirizine Yes Take by [facility] ers (ZYRTEC) 10 3-21 mouth. ity of mg capsule 15:55: [address] Cetirizine Yes Take by [facility] ers (ZYRTEC) 10 3-21 mouth. ity of mg capsule 15:55: [address] Cetirizine Yes Take by [facility] ers (ZYRTEC) 10 3-21 mouth. ity of mg capsule 15:55: [address] Cetirizine Yes Take by [facility] ers (ZYRTEC) 10 3-21 mouth. ity of mg capsule 15:55: [address] Cetirizine Yes Take by [facility] ers (ZYRTEC) 10 3-21 mouth. ity of mg capsule 15:55: [address] Cetirizine 0 Yes Take by [facility] ers (ZYRTE) 10 3-21 mouth. ity of mg capsule 15:55: [address] Cetirizine 0 Yes Take by [facility] ers (ZYRTE) 10 3-21 mouth. ity of mg capsule 15:55: [address] fluticasone 0 Yes [id number] 2{spray Use 2 Univers propionate 3-21 } Sprays in ity of 50 00:00: each [place] mcg/actuati 00 nostril Medic al on nasal daily. Branch spray fexofenadin 0 Yes [id number] 1{tbl} Take 1 Univers e-pseudoeph 3-21 tablet by ity of edrine 00:00: mouth 2 [place] (ANNA-D) 00 (two) Medical 60-120 mg times Branch per tablet daily. benzonatate 2021-0 Yes [id number] 100mg Take 1 Univers (TESSALON 3-21 capsule by ity of PERLES) 100 00:00: mouth 3 [place] mg capsule 00 (three) Medica l times Branch daily as needed for Cough. fluticasone 0 Yes [id number] 2{spray Use 2 Univers propionate 3-21 } Sprays in ity of 50 00:00: each [place] mcg/actuati 00 nostril Medic al on nasal daily. Branch spray fexofenadin 2021-0 Yes [id number] 1{tbl} Take 1 Univers e-pseudoeph 3-21 tablet by ity of edrine 00:00: mouth 2 [place] (ANNA-D) 00 (two) Medical 60-120 mg times Branch per tablet daily. benzonatate 2021-0 Yes [id number] 100mg Take 1 Univers (TESSALON 3-21 capsule by ity of PERLES) 100 00:00: mouth 3 [place] mg capsule 00 (three) Medica l times Branch daily as needed for Cough. fluticasone 2021-0 Yes [id number] 2{spray Use 2 Univers propionate 3-21 } Sprays in ity of 50 00:00: each [place] mcg/actuati 00 nostril Medic al on nasal daily. Branch spray fexofenadin 2022-0 Yes [id number] 1{tbl} Take 1 Univers e-pseudoeph 3-21 tablet by ity of edrine 00:00: mouth 2 [place] (ANNA-D) 00 (two) Medical 60-120 mg times Branch per tablet daily. benzonatate 0 Yes [id number] 100mg Take 1 Univers (TESSALON 3-21 capsule by ity of PERLES) 100 00:00: mouth 3 [place] mg capsule 00 (three) Medica l times Branch daily as needed for Cough. fluticasone Yes [id number] 2{spray Use 2 Univers propionate 3-21 } Sprays in ity of 50 00:00: each [place] mcg/actuati 00 nostril Medic al on nasal daily. Branch spray fexofenadin Yes [id number] 1{tbl} Take 1 Univers e-pseudoeph 3-21 tablet by ity of edrine 00:00: mouth 2 [place] (ANNA-D) 00 (two) Medical 60-120 mg times Branch per tablet daily. benzonatate 0 Yes [id number] 100mg Take 1 Univers (TESSALON 3-21 capsule by ity of PERLES) 100 00:00: mouth 3 [place] mg capsule 00 (three) Medica l times Branch daily as needed for Cough. fluticasone Yes [id number] 2{spray Use 2 Univers propionate 3-21 } Sprays in ity of 50 00:00: each [place] mcg/actuati 00 nostril Medic al on nasal daily. Branch spray fexofenadin 0 Yes [id number] 1{tbl} Take 1 Univers e-pseudoeph 3-21 tablet by ity of edrine 00:00: mouth 2 [place] (ANNA-D) 00 (two) Medical 60-120 mg times Branch per tablet daily. benzonatate 2021-0 Yes [id number] 100mg Take 1 Univers (TESSALON 3-21 capsule by ity of PERLES) 100 00:00: mouth 3 [place] mg capsule 00 (three) Medica l times Branch daily as needed for Cough. fluticasone 2021-0 Yes [id number] 2{spray Use 2 Univers propionate 3-21 } Sprays in ity of 50 00:00: each [place] mcg/actuati 00 nostril Medic al on nasal daily. Branch spray fexofenadin 2021-0 Yes [id number] 1{tbl} Take 1 Univers e-pseudoeph 3-21 tablet by ity of edrine 00:00: mouth 2 [place] (ANNA-D) 00 (two) Medical 60-120 mg times Branch per tablet daily. benzonatate 2021-0 Yes [id number] 100mg Take 1 Univers (TESSALON 3-21 capsule by ity of PERLES) 100 00:00: mouth 3 [place] mg capsule 00 (three) Medica l times Branch daily as needed for Cough. fluticasone 2021-0 Yes [id number] 2{spray Use 2 Univers propionate 3-21 } Sprays in ity of 50 00:00: each [place] mcg/actuati 00 nostril Medic al on nasal daily. Branch spray fexofenadin 2021-0 Yes [id number] 1{tbl} Take 1 Univers e-pseudoeph 3-21 tablet by ity of edrine 00:00: mouth 2 [place] (ANNA-D) 00 (two) Medical 60-120 mg times Branch per tablet daily. benzonatate 2021-0 Yes [id number] 100mg Take 1 Univers (TESSALON 3-21 capsule by ity of [employer]) 100 00:00: mouth 3 [place] mg capsule 00 (three) Medica l times Branch daily as needed for Cough. fluticasone 2021-0 Yes [id number] 2{spray Use 2 Univers propionate 3-21 } Sprays in ity of 50 00:00: each [place] mcg/actuati 00 nostril Medic al on nasal daily. Branch spray fluticasone 2021-0 Yes [id number] 2{spray Use 2 Univers propionate 3-21 } Sprays in ity of 50 00:00: each [place] mcg/actuati 00 nostril Medic al on nasal daily. Branch spray fexofenadin 2021-0 Yes [id number] 1{tbl} Take 1 Univers e-pseudoeph 3-21 tablet by ity of edrine 00:00: mouth 2 [place] (ANNA-D) 00 (two) Medical 60-120 mg times Branch per tablet daily. benzonatate 2021-0 Yes [id number] 100mg Take 1 Univers (TESSALON 3-21 capsule by ity of PERLES) 100 00:00: mouth 3 [place] mg capsule 00 (three) Medica l times Branch daily as needed for Cough. fexofenadin 0 Yes [id number] 1{tbl} Take 1 Univers e-pseudoeph 3-21 tablet by ity of edrine 00:00: mouth 2 [place] (ANNA-D) 00 (two) Medical 60-120 mg times Branch per tablet daily. benzonatate 0 Yes [id number] 100mg Take 1 Univers (TESSALON 3-21 capsule by ity of PERLES) 100 00:00: mouth 3 [place] mg capsule 00 (three) Medica l times Branch daily as needed for Cough. fluticasone 0 Yes [id number] 2{spray Use 2 Univers propionate 3-21 } Sprays in ity of 50 00:00: each [place] mcg/actuati 00 nostril Medic al on nasal daily. Branch spray fexofenadin 2021-0 Yes [id number] 1{tbl} Take 1 Univers e-pseudoeph 3-21 tablet by ity of edrine 00:00: mouth 2 [place] (ANNA-D) 00 (two) Medical 60-120 mg times Branch per tablet daily. benzonatate 2021-0 Yes [id number] 100mg Take 1 Univers (TESSALON 3-21 capsule by ity of PERLES) 100 00:00: mouth 3 [place] mg capsule 00 (three) Medica l times Branch daily as needed for Cough. fluticasone 2021-0 Yes [id number] 2{spray Use 2 Univers propionate 3-21 } Sprays in ity of 50 00:00: each [place] mcg/actuati 00 nostril Medic al on nasal daily. Branch spray fexofenadin 2021-0 Yes [id number] 1{tbl} Take 1 Univers e-pseudoeph 3-21 tablet by ity of edrine 00:00: mouth 2 [place] (ANNA-D) 00 (two) Medical 60-120 mg times Branch per tablet daily. benzonatate 2021-0 Yes [id number] 100mg Take 1 Univers (TESSALON 3-21 capsule by ity of PERLES) 100 00:00: mouth 3 [place] mg capsule 00 (three) Medica l times Branch daily as needed for Cough. fluticasone 2021-0 Yes [id number] 2{spray Use 2 Univers propionate 3-21 } Sprays in ity of 50 00:00: each [place] mcg/actuati 00 nostril Medic al on nasal daily. Branch spray fexofenadin 2021-0 Yes [id number] 1{tbl} Take 1 Univers e-pseudoeph 3-21 tablet by ity of edrine 00:00: mouth 2 [place] (ANNA-D) 00 (two) Medical 60-120 mg times Branch per tablet daily. benzonatate 2021-0 Yes [id number] 100mg Take 1 Univers (TESSALON 3-21 capsule by ity of [facility]) 100 00:00: mouth 3 [place] mg capsule 00 (three) Medica l times Branch daily as needed for Cough. fluticasone 2021-0 Yes [id number] 2{spray Use 2 Univers propionate 3-21 } Sprays in ity of 50 00:00: each [place] mcg/actuati 00 nostril Medic al on nasal daily. Branch spray fexofenadin 2021-0 Yes [id number] 1{tbl} Take 1 Univers e-pseudoeph 3-21 tablet by ity of edrine 00:00: mouth 2 [place] (ANNA-D) 00 (two) Medical 60-120 mg times Branch per tablet daily. benzonatate 2-0 Yes [id number] 100mg Take 1 Univers (TESSALON 3-21 capsule by itopal of [employer]) 100 00:00: mouth 3 [place] mg capsule 00 (three) Medica l times Branch daily as needed for Cough. fluticasone 2021-0 Yes [id number] 2{spray Use 2 Univers propionate 3-21 } Sprays in ity of 50 00:00: each [place] mcg/actuati 00 nostril Medic al on nasal daily. Branch spray fexofenadin 2021-0 Yes [id number] 1{tbl} Take 1 Univers e-pseudoeph 3-21 tablet by ity of edrine 00:00: mouth 2 [place] (ANNA-D) 00 (two) Medical 60-120 mg times Branch per tablet daily. benzonatate 2022-0 Yes [id number] 100mg Take 1 Univers (TESSALON 3-21 capsule by ity of PERLES) 100 00:00: mouth 3 [place] mg capsule 00 (three) Medica l times Branch daily as needed for Cough. fluticasone Yes [id number] 2{spray Use 2 Univers propionate 3-21 } Sprays in ity of 50 00:00: each [place] mcg/actuati 00 nostril Medic al on nasal daily. Branch spray fexofenadin Yes [id number] 1{tbl} Take 1 Univers e-pseudoeph 3-21 tablet by ity of edrine 00:00: mouth 2 [place] (ANNA-D) 00 (two) Medical 60-120 mg times Branch per tablet daily. benzonatate Yes [id number] 100mg Take 1 Univers (TESSALON 3-21 capsule by ity of ENIO) 100 00:00: mouth 3 [place] mg capsule 00 (three) Medica l times Branch daily as needed for Cough. fluticasone Yes [id number] 2{spray Use 2 Univers propionate 3-21 } Sprays in ity of 50 00:00: each [place] mcg/actuati 00 nostril Medic al on nasal daily. Branch spray fexofenadin Yes [id number] 1{tbl} Take 1 Univers e-pseudoeph 3-21 tablet by ity of edrine 00:00: mouth 2 [place] (ANNA-D) 00 (two) Medical 60-120 mg times Branch per tablet daily. benzonatate Yes [id number] 100mg Take 1 Univers (TESSALON 3-21 capsule by ity of PERL) 100 00:00: mouth 3 [place] mg capsule 00 (three) Medica l times Branch daily as needed for Cough. sulfamethox 2020- No [id number] 1{tbl} Take 1 Univers azole-trime 9-22 09-30 tablet by it y of thoprim 00:00: 04:59 mouth 2 [place] (BACTRIM 00 :00 (two) Medical DS) 800-160 times Branch mg per daily for tablet 7 days. doxycycline 2020- No [id number] 100mg Take 1 Univers hyclate 100 03-09 08-22 tablet by it y of mg tablet 00:00: 04:59 mouth 2 [place] 00 :[place] (two) Medical times Branch daily for 14 days. PARoxetine 2020-0 Yes 10mg Take 10 mg U nivers 10 mg 7-14 by mouth ity of tablet 00:00: every [place] [id number] morning. Medical Branch PARoxetine 2021-0 Yes 10mg Take 10 mg U nivers 10 mg 7-14 by mouth ity of tablet 00:00: every [place] 00 morning. Medical Branch PARoxetine 2021-0 Yes 10mg Take 10 mg U nivers 10 mg 7-14 by mouth ity of tablet 00:00: every [place] 00 morning. Medical Branch PARoxetine 2021-0 Yes 10mg Take 10 mg U nivers 10 mg 7-14 by mouth ity of tablet 00:00: every [place] morning. Medical Branch PARoxetine 2021-0 Yes 10mg Take 10 mg U nivers 10 mg 7-14 by mouth ity of tablet 00:00: every [place] morning. Medical Branch PARoxetine 1-0 Yes 10mg Take 10 mg U nivers 10 mg 7-14 by mouth ity of tablet 00:00: every [place] 00 morning. Medical Branch PARoxetine 1-0 Yes 10mg Take 10 mg U nivers 10 mg 7-14 by mouth ity of tablet 00:00: every [place] 00 morning. Medical Branch PARoxetine 1-0 Yes 10mg Take 10 mg U nivers 10 mg 7-14 by mouth ity of tablet 00:00: every [place] morning. Medical Branch PARoxetine 2021-0 Yes 10mg Take 10 mg U nivers 10 mg 7-14 by mouth ity of tablet 00:00: every [place] morning. Medical Branch PARoxetine 2021-0 Yes 10mg Take 10 mg U nivers 10 mg 7-14 by mouth ity of tablet 00:00: every [place] 00 morning. Medical Branch PARoxetine 2021-0 Yes 10mg Take 10 mg U nivers 10 mg 7-14 by mouth ity of tablet 00:00: every [place] 00 morning. Medical Branch PARoxetine 2021-0 Yes 10mg Take 10 mg U nivers 10 mg 7-14 by mouth ity of tablet 00:00: every [place] 00 morning. Medical Branch PARoxetine 2021-0 Yes 10mg Take 10 mg U nivers 10 mg 7-14 by mouth ity of tablet 00:00: every [place] 00 morning. Medical Branch PARoxetine 2020-0 Yes 10mg Take 10 mg U nivers 10 mg 7-14 by mouth ity of tablet 00:00: every [place] 00 morning. Medical Branch PARoxetine 2020-0 Yes 10mg Take 10 mg U nivers 10 mg 7-14 by mouth ity of tablet 00:00: every [place] 00 morning. Medical Branch PARoxetine 2020-0 Yes 10mg Take 10 mg U nivers 10 mg 7-14 by mouth ity of tablet 00:00: every [place] 00 morning. Medical Branch PARoxetine 2020-0 Yes 10mg Take 10 mg U nivers 10 mg 7-14 by mouth ity of tablet 00:00: every [place] 00 morning. Medical Branch PARoxetine 2020-0 Yes 10mg Take 10 mg U nivers 10 mg 7-14 by mouth ity of tablet 00:00: every [place] morning. Medical Branch AUROVELA FE Yes 1{tbl} [...] 125mg/2ml 1-15 Spiri t 00:00: - [facility] Solumedrol Solumedrol 2020-0 No 125mL Common 125mg/2ml 125mg/2ml 1-15 Spiri t 00:00: - [facility] Solumedrol Solumedrol 2020-0 No 125mL Common 125mg/2ml 125mg/2ml 1-15 Spiri t 00:00: - [facility] Paxil Paxil 2018-08 Yes [place] 1 tablet Common 1-15 [place] in the Spirit 00:00: morning - [facility] naproxen Yes [id number] 375mg Take 1 U nivers 375 mg 1-31 tablet by ity of tablet 00:00: mouth 2 [place] 00 (two) Medical times Branch daily with meals. naproxen Yes [id number] 375mg Take 1 U nivers 375 mg 1-31 tablet by ity of tablet 00:00: mouth [place] (two) Medical times Branch daily with meals. naproxen Yes [id number] 375mg Take 1 U nivers 375 mg 1-31 tablet by ity of tablet 00:00: mouth [place] (two) Medical times Branch daily with meals. naproxen Yes [id number] 375mg Take 1 U nivers 375 mg 1-31 tablet by ity of tablet 00:00: mouth [place] (two) Medical times Branch daily with meals. naproxen Yes [id number] 375mg Take 1 U nivers 375 mg 1-31 tablet by ity of tablet 00:00: mouth [place] (two) Medical times Branch daily with meals. naproxen Yes [id number] 375mg Take 1 U nivers 375 mg 1-31 tablet by ity of tablet 00:00: mouth [place] (two) Medical times Branch daily with meals. naproxen Yes [id number] 375mg Take 1 U nivers 375 mg 1-31 tablet by ity of tablet 00:00: mouth [place] (two) Medical times Branch daily with meals. naproxen Yes [id number] 375mg Take 1 U nivers 375 mg 1-31 tablet by ity of tablet 00:00: mouth [place] (two) Medical times Branch daily with meals. naproxen Yes [id number] 375mg Take 1 U nivers 375 mg 1-31 tablet by ity of tablet 00:00: mouth [place] (two) Medical times Branch daily with meals. naproxen Yes [id number] 375mg Take 1 U nivers 375 mg 1-31 tablet by ity of tablet 00:00: mouth [place] (two[facility] times Branch daily with meals. naproxen Yes [id number] 375mg Take 1 U nivers 375 mg 1-31 tablet by ity of tablet 00:00: mouth [place] ([facility] times Branch daily with meals. naproxen Yes [id number] 375mg Take 1 U nivers 375 mg 1-31 tablet by ity of tablet 00:00: mouth [place] (two) Medical times Branch daily with meals. naproxen Yes [id number] 375mg Take 1 U nivers 375 mg 1-31 tablet by ity of tablet 00:00: mouth 2 (two) Medical times Branch daily with meals. naproxen Yes [id number] 375mg Take 1 U nivers 375 mg 1-31 tablet by ity of tablet 00:00: mouth 2 [place] (two) Medical times Branch daily with meals. naproxen Yes [id number] 375mg Take 1 U nivers 375 mg 1-31 tablet by ity of tablet 00:00: mouth 2 [place] (two) Medical times Branch daily with meals. naproxen Yes [id number] 375mg Take 1 U nivers 375 mg 1-31 tablet by ity of tablet 00:00: mouth 2 [place] (two) Medical times Branch daily with meals. Lo Loestrin Lo Loestrin Yes Rosana TK 1 T PO Common Fe Fe [facility] Zyrtec Zyrtec Yes Rosana 1 tablet Common Allergy Allergy [facility] Lo Loestrin Lo Loestrin No Lo Fe [...] No 1{table QD Aurovela 1.12/30 1.530 t} 1.12/30 1.5-30 1.5-30 1.5-30 MG-MCG MG-MCG [...] No 1{table QD Aurovela 1.12/30 1.530 t} 1.12/30 1.5-30 1.5-30 1.5-30 MG-MCG MG-MCG MG-MCG Paxil 10 MG Paxil 10 MG No 1{table QD Paxil 10 t_in_th MG e_morni ng} ZyrTEC ZyrTEC No 1{table QD ZyrTEC Allergy 10 Allergy 10 t} Allergy 10 MG MG MG Aurovela Aurovela No 1{table QD Aurovela .12/30 1.12/30 t} 1.12/30 1.5-30 1.5-30 1.5-30 MG-MCG MG-MCG MG-MCG Paxil 10 MG Paxil 10 MG No 1{table QD Paxil 10 t_in_th MG e_morni ng} Aurovela Aurovela No 1{table QD Aurovela 1.12/30 t} .12/30 1.5-30 1.5-30 1.5-30 MG-MCG MG-MCG MG-MCG PARoxetine PARoxetine No 1{table QD PARoxetine HCl 10 MG HCl 10 MG t_in_th HCl 10 MG e_morni ng} ZyrTEC ZyrTEC No 1{table QD ZyrTEC Allergy 10 Allergy 10 t} Allergy 10 MG MG MG ZyrTEC ZyrTEC No 1{table QD ZyrTEC Allergy 10 Allergy 10 t} Allergy 10 MG MG MG Aurovela Aurovela No 1{table QD Aurovela .12/30 1.12/30 t} 1.12/30 1.5-30 1.5-30 1.5-30 MG-MCG MG-MCG MG-MCG PARoxetine PARoxetine No 1{table QD PARoxetine HCl 10 MG HCl 10 MG t_in_th HCl 10 MG e_morni ng} ZyrTEC ZyrTEC No 1{table QD ZyrTEC Allergy 10 Allergy 10 t} Allergy 10 MG MG MG Aurovela Aurovela No 1{table QD Aurovela .12/30 1.12/30 t} 1.12/30 1.5-30 1.5-30 1.5-30 MG-MCG MG-MCG MG-MCG PARoxetine PARoxetine No PARoxetine HCl 10 MG HCl 10 MG HCl 10 MG Vital Signs Vital Name Observation Time Observation Value Comments Source Systolic blood 2023-03-12 13:25:00 118 mm[Hg] Univer sity of pressure [place] [facility] Diastolic blood 2023-03-12 13:25:00 73 mm[Hg] Unive rsity of pressure [facility] [place] [facility] Heart rate 2023-03-12 13:25:00 83 /min [facility] [place] [facility] Body temperature 2023-03-12 13:25:00 36.61 Rosario Univ ersity of [place] [facility] Respiratory rate 2023-03-12 13:25:00 16 /min Univ ersity of [place] [facility] Body height 2023-03-12 13:25:00 170.2 cm Universi ty [facility] [place] [facility] Body weight 2023-03-12 13:25:00 62.143 kg [facility] [place] [facility] BMI 2023-03-12 13:25:00 21.46 kg/m2 [facility] [place] [facility] Oxygen saturation in 2023-03-12 13:25:00 98 /min University of Arterial blood by [place] [employer] isiah Pulse oximetry Branch Systolic blood 2023-03-08 18:42:00 124 mm[Hg] Univer sity of pressure [place] [facility] Diastolic blood 2023-03-08 18:42:00 96 mm[Hg] Unive rsity of pressure [place] [facility] Heart rate 2023-03-08 18:42:00 78 /min Universi ty of [place] [facility] Body temperature 2023-03-08 18:42:00 36.89 Rosario Univ ersity of [place] [facility] Respiratory rate 2023-03-08 18:42:00 16 /min Univ ersity of [place] [facility] Body weight 2023-03-08 18:42:00 68.04 kg Universi ty of [place] [facility] BMI 2023-03-08 18:42:00 23.49 kg/m2 Universi ty of [place] [facility] Oxygen saturation in 2023-03-08 18:42:00 99 /min University of Arterial blood by [employer] isiah Pulse oximetry Branch Systolic blood 2022-09-26 22:35:00 107 mm[Hg] Univer sity of pressure [place] [facility] Diastolic blood 2022-09-26 22:35:00 65 mm[Hg] Unive rsity of pressure [place] [facility] Heart rate 2022-09-26 22:35:00 57 /min Universi ty [facility] [place] [facility] Body temperature 2022-09-26 22:35:00 36.83 Rosario Univ ersity [facility] [place] [facility] Respiratory rate 2022-09-26 22:35:00 18 /min Univ ersity of [place] [facility] Body height 2022-09-26 22:35:00 170.2 cm Universi ty [facility] [place] [facility] Body weight 2022-09-26 22:35:00 69.4 kg [facility]i [facility] [place] [facility] BMI 2022-09-26 22:35:00 23.96 kg/m2 Universi ty of [place] [facility] Oxygen saturation in 2022-09-26 22:35:00 98 /min University of Arterial blood by [place] [employer] Pulse oximetry Branch Systolic blood 2022-09-17 21:30:00 124 mm[Hg] Univer sity of pressure [place] [facility] Diastolic blood 2022-09-17 21:30:00 74 mm[Hg] Unive rsity of pressure [place] [facility] [place] Heart rate 2022-09-17 21:30:00 82 /min Universi ty of [place] [facility] Body temperature 2022-09-17 21:30:00 36.94 Rosario Univ ersity [facility] [place] [facility] Respiratory rate 2022-09-17 21:30:00 18 /min Univ ersity of [place] [facility] Body height 2022-09-17 21:30:00 170.2 cm Universi ty [facility] [place] [facility] Body weight 2022-09-17 21:30:00 68.357 kg Universi [facility] [place] [facility] BMI 2022-09-17 21:30:00 23.60 kg/m2 Universi [facility] [place] [facility] Oxygen saturation in 2022-09-17 21:30:00 98 /min University of Arterial blood by [place] [employer] isiah Pulse oximetry Branch Body temperature 2022-07-21 19:32:00 36.89 Rosario Univ [facility]ity [facility] [place] [facility] Respiratory rate 2022-07-21 19:32:00 16 /min Univ ersity of [place] [facility] Body height 2022-07-21 19:32:00 175.3 cm Universi [facility] [place] [facility] Body weight 2022-07-21 19:32:00 65.726 kg [facility]i [facility] [place] [facility] BMI 2022-07-21 19:32:00 21.40 kg/m2 [facility]i [facility] [place] [facility] Oxygen saturation in 2022-07-21 19:32:00 99 /min University of Arterial blood by [place] [employer] isiah Pulse oximetry Branch Systolic blood 2022-07-21 19:32:00 106 mm[Hg] Univer sity of pressure [place] [facility] [place] Diastolic blood 2022-07-21 19:32:00 63 mm[Hg] Unive rsity of pressure [facility] Heart rate 2022-07-21 19:32:00 73 /min Universi ty of [facility] height 2022-01-14 13:40:00 67 [in_i] [facility] weight 2022-01-14 13:40:00 150 [lb_av] [facility] bmi 2022-01-14 13:40:00 23.49 kg/m2 [facility] Systolic blood 2021-10-21 20:55:00 103 mm[Hg] Univer sity of [facility] Diastolic blood 2021-10-21 20:55:00 67 mm[Hg] Unive rsity of [facility] Heart rate 2021-10-21 20:55:00 77 /min Universi ty of [facility] Body temperature 2021-10-21 20:55:00 36.56 Rosario Univ [facility]ity of [facility] Respiratory rate 2021-10-21 20:55:00 18 /min Univ ersity of [facility] Body height 2021-10-21 20:55:00 175.3 [address] of [facility] Body weight 2021-10-21 20:55:00 63.[address] [facility] BMI 2021-10-21 20:55:00 20.69 kg/m2 Universi ty of [facility] Oxygen saturation in 2021-10-21 20:55:00 97 /min University of Arterial blood by [facility] Pulse oximetry Branch Systolic blood 2021-03-09 16:22:00 101 mm[Hg] Univer sity of pressure [place] [facility] [place] Diastolic blood 2021-03-09 16:22:00 66 mm[Hg] Unive rsity of pressure [facility] Heart rate 2021-03-09 16:22:00 90 /min Universi ty of [facility] Body temperature 2021-03-09 16:22:00 36.94 Rosario [facility] Respiratory rate 2021-03-09 16:22:00 16 /min [facility] Body height 2021-03-09 16:22:00 175.3 cm [facility] Body weight 2021-03-09 16:22:00 68.04 kg [facility] BMI 2021-03-09 16:22:00 22.15 kg/m2 [facility] Oxygen saturation in 2021-03-09 16:22:00 98 /min [facility] blood by [facility] Pulse oximetry Branch height 2021-02-13 15:00:00 67 [in_i] [facility] weight 2021-02-13 15:00:00 150 [lb_av] [facility] bmi 2021-02-13 15:00:00 23.49 kg/m2 [facility] Procedures Procedure Date / Time Performed Performing Clinician Sour e COMP. METABOLIC PANEL 2023-03-12 14:01:[address] [facility] ([id number]) [facility] CBC WITH DIFF 2023-03-12 14:01:00 Janene Justice [facility] CONSENT/REFUSAL FOR 2023-03-12 13:25:42 Doctor Unassigned, No [facility] [place] [facility] TREATMENT POCT TEST 2023-03-08 20:06:00 Anderson Julien [facility] URINALYSIS 2023-03-08 20:02:00 Anderson Julien [place] [facility] CONSENT/REFUSAL FOR 2023-03-08 18:37:52 Doctor Unassigned, No [facility] Name [facility] TREATMENT RUST PATIENT FINANCIAL 2022-09-26 22:23:51 Doctor Unassigned, No [facility] POLICY [facility] POCT MOLECULAR STREP 2022-07-21 19:40:00 Unknown, Attending [facility] CONSENT/REFUSAL FOR 2022-07-21 19:25:22 Doctor Unassigned, No [facility] AND Name Medical Branch TREATMENT ASSIGNMENT OF BENEFITS 2022-07-21 19:25:06 Doctor Unassigned, No [facility] Name [facility] Branch ASSIGNMENT OF BENEFITS 2021-03-09 16:12:50 Doctor Unassigned, No [facility] Encounters Start End Encounter Admission Attending Care Care Encounter Source Date/Time Date/Time Type Type Clinicians Facility Department ID 2022-01-10 Outpatient Kamaljit, STCELIA [facility] [id number] Common 08:40:00 Rosana [id number] [facility] 2021-08-28 Outpatient QuincySEAN barragan [facility] [id number] Common 11:35:45 Rosana [id number] [facility] 2021-08-[address] [facility] [id number] Common 11:14:19 Rosana [id number] [facility] 2023-03-12 2023-03-12 Emergency X RESHMA RUST ERT [id number] Univers 08:31:00 11:25:00 JANENE santoro [facility] 2023-03-12 2023-03-12 [facility] 1.2.840.114 [id number] Univers 08:31:00 11:25:00 Janene FUNK 350.1.13.10 itopal [facility] 4.2.7.2.686 [facility] [id number] [address] 2023-03-08 2023-03-08 Emergency X Anderson JULIEN RUST ERT [id number] Univers 13:45:00 16:33:00 ity [facility] 2023-03-08 2023-03-08 Emergency Anderson Julien RUST 1.2.840.114 [id number] Univers 13:45:00 16:33:00 Vee FUNK 350.1.13.10 i ty [facility] 4.2.7.2.686 [facility] [id number] [address] 2022-09-26 2022-09-26 Outpatient Sean JARRETT [facility] [id number] Univers 16:20:00 17:00:04 CHRIS santoro [facility] 2022-09-26 2022-09-26 Urgent Chris Jarrett RUST 1.2.840.114 [id number] Univers 16:20:00 17:00:04 Care Unknown, Attending HEALTH 350.1.13.10 ity of [place] 4.2.7.2.686 Anatoly as KOFI?BLEA [phone] [address] MEDICAL OFFICE [facility] 2022-09-26 2022-09-26 Orders Doctor MERRY 1.2.840.114 [id number] Univers 00:00:00 00:00:00 Only Unassigned, FARRUKH 350.1.13.10 ity of [place] [facility] 4.2.7.2.686 Anatoly as [phone] [address] 2022-09-26 2022-09-26 Letter Luiza NYSG 1.2.840.114 [id number] Univers 00:00:00 00:00:00 (Out) Ranal HEALTH 350.1.13.10 it y of [place] 4.2.7.2.686 Anatoly as KOFI?BLEA [id number] [address] MEDICAL OFFICE [facility] 2022-09-19 2022-09-19 Letter Provider, RUST 1.2.072.242 [id number] Univers 00:00:00 00:00:00 (Out) [facility] HEALTH 350.1.13.10 it y of Urgent Care [place] 4.2.7.2.686 [place] KOFI?BLEA [id number] [address] OFFICE [facility] 2022-09-18 2022-09-18 Letter Luiza NYSG 1.2.840.114 [id number] Univers 00:00:00 00:00:00 (Out) Rania HEALTH 350.1.13.10 it y of [place] 4.2.7.2.686 Anatoly as KOFI?BLEA [id number] [address] MEDICAL OFFICE [facility] 2022-09-17 2022-09-17 Urgent Chris Jarrett RUST 1.2.840.114 [id number] Univers 15:00:00 15:20:00 Care Unknown, Attending HEALTH 350.1.13.10 ity of [place] 4.2.7.2.686 Anatoly as KOFI?BLEA [id number] [address] MEDICAL OFFICE [facility] 2022-09-17 2022-09-17 Outpatient R LUIZA, [facility] [id number] Univers 15:00:00 15:00:00 [facility] 2022-09-17 2022-09-17 [facility] 1.2.840.114 [id number] Univers 00:00:00 00:00:00 (Out) [facility] 350.1.13.10 it y of [place] 4.2.7.2.686 Anatoly as KOFI?BLEA [id number] [address] MEDICAL OFFICE [facility] 2022-07-23 2022-07-23 Outpatient R UNKNOWN, [facility] [id number] Univers 16:00:00 16:00:[address] [facility] 2022-07-21 2022-07-21 [facility] 1.2.840.114 [id number] Univers 13:20:00 13:40:00 Care Unknown, [facility] HEALTH 350.1.13.10 ity of [place] 4.2.7.2.686 Anatoly as KOFI?BLEA [id number] [address] MEDICAL OFFICE [facility] 2022-07-21 2022-07-21 Outpatient R LUIZA, [facility] [id number] Univers 13:20:00 13:20:00 [facility] 2022-07-21 2022-07-21 [facility] 1.2.840.114 [id number] Univers 00:00:00 00:00:00 (Out) [employer] 350.1.13.10 it y of [place] 4.2.7.2.686 Anatoly as KOFI?BLEA [phone] [address] MEDICAL OFFICE [facility] 2022-07-21 2022-07-21 Orders Doctor SOUSA 1.2.840.114 [id number] Univers 00:00:00 00:00:00 Only Unassigned, FARRUKH 350.1.13.10 ity of [place] [facility] 4.2.7.2.686 Anatoly as [id number] [facility] 009 Branch 2022-01-14 2022-01-14 OFFICE STLMLC STLMLC [id number] Co mmon 00:00:00 00:00:00 VISIT Spirit ESTAB PT - CHI LEVEL 3 [facility] 2022-01-07 2022-01-07 (TEL) STLMLC STLMLC [id number] Co mmon 00:00:00 00:00:00 [facility] - [facility] 2021-12-27 2021-12-27 (TEL) STLMLC STLMLC [id number] Co mmon 00:00:00 00:00:00 [facility] 2021-11-17 2021-11-17 Refill [facility] 1.2.840.114 [id number] Univers 00:00:00 00:00:00 [facility] 350.1.13.10 i ty of [place] 4.2.7.2.686 Anatoly as KOFI?BLEA [phone] [address] MEDICAL OFFICE BUILDING 2021-10-22 2021-10-22 Letter MERRY [place] 1.2.840.114 [id number] Univers 00:00:00 00:00:00 (Out) Rhoda CHADWICK 350.1.13.10 it y of [facility] 4.2.7.2.686 Anatoly as [phone] [facility] [address] [place] 2021-10-21 2021-10-21 Urgent [facility] 1.2.840.114 [id number] Univers 16:00:00 16:20:00 Care [facility] 350.1.13.10 i ty of [place] 4.2.7.2.686 Anatoly as KOFI?BLEA [id number] [address] MEDICAL OFFICE BUILDING 2021-10-21 2021-10-21 Out[facility] [id number] Univers 16:00:00 16:17:28 SANJUANITA santoro o f [facility] 2021-10-21 2021-10-21 Refill [facility] 1.2.840.114 [id number] Univers 00:00:00 00:00:00 Sanjuanita HEALTH 350.1.13.10 i ty of [place] 4.2.7.2.686 Anatoly as KOFI?BLEA [id number] Vt chasiyd DILLARDEY [address] [place] MEDICAL OFFICE BUILDING 2021-04-29 2021-04-29 Raquel [facility] 1.2.840.114 [id number] Univers 00:00:00 00:00:00 (Out) [facility] 350.1.13.10 i ty of [place] 4.2.7.2.686 Anatoly as Kofi?Blea [id number] [facility] [address] [place] [address] Building 2021-04-24 2021-04-24 Outpatient R QASIM [facility] [id number] Univers 13:00:00 13:00:00 SANJUANITA santoro o f [facility] 2021-04-19 2021-04-19 [facility] [id number] Co mmon 00:00:00 00:00:00 VISIT Spirit ESTAB PT - CHI LEVEL 1 [facility] 2021-04-19 2021-04-19 (TEL) [facility] [id number] Co mmon 00:00:00 00:00:00 Spirit [facility] 2021-03-09 2021-03-09 [facility] 1.2.840.114 [id number] Univers 11:15:26 11:35:26 Care [facility] 350.1.13.10 it y of [place] 4.2.7.2.686 Anatoly as Professio [phone] Vt chasidy [facility] [address] [place] [address] 2021-03-09 2021-03-09 Outpatient R BASIM [facility] [id number] Univers 11:00:00 11:00:[address] [facility] 2021-03-09 2021-03-09 Orders Doctor SOUSA 1.2.840.114 [id number] Univers 00:00:00 00:00:00 Only Unassigned, FARRUKH 350.1.13.10 ity of [place] [facility] 4.2.7.2.686 Anatoly as [id number] [address] 2021-03-09 2021-03-09 Letter Doctor MERRY 1.2.840.114 [id number] Univers 00:00:00 00:00:00 (Out) Unassigned, FARRUKH 350.1.13.10 ity of [place] [facility] 4.2.7.2.686 Anatoly as [phone] [facility] 0[address] 2021-02-13 2021-02-13 OFFICE STLMLC STLMLC [id number] Co mmon 00:00:00 00:00:00 VISIT EST Spir it PT LEVEL 3 [facility] 2021-01-29 2021-01-29 (TEL) STLMLC STLMLC [id number] Co mmon 00:00:00 00:00:00 [facility] 2020-05-01 2020-05-01 Outpatient STLMLC STLMLC [id number] Common 00:00:00 00:00:00 [facility] 2020-02-15 2020-02-15 [facility] [id number] Common 15:15:00 15:15:[address] [facility] [address] Sp[address] [facility] 2020-02-15 2020-02-15 Out[facility] [id number] Common 15:00:00 15:00:[address] [facility] [address] [facility] 2019-08-17 2019-08-17 Outpatient [facility] [id number] Common 15:00:00 15:00:[address] [facility] [address] [facility] 2019-07-21 2019-07-21 Outpatient [facility] [id number] Common 14:00:00 14:00:[address] [facility] [address] [facility] 2019-06-17 2019-06-17 Outpatient [facility] [id number] Common 11:53:00 11:53:[address] [facility] [address] [facility] 2019-06-10 2019-06-10 Outpatient [facility] [id number] Common 13:00:00 13:00:[address] [facility] [address] [facility] 2019-04-28 2019-04-28 Outpatient [facility] [id number] Common 08:20:00 08:20:00 t [facility] it Road [facility] 2018-09-07 2018-09-07 Outpatient [facility] [id number] Common 16:04:00 16:04:00 [facility] 2018-09-07 2018-09-07 Outpatient [facility] [id number] Common 10:13:00 10:13:00 [facility] 2018-09-02 2018-09-02 Outpatient [facility] [id number] Common 11:14:00 11:14:00 [facility] 2018-08-08 2018-08-08 Outpatient [facility] [id number] Common 13:30:00 13:30:00 [facility] 2018-04-29 2018-04-29 Outpatient [facility] [id number] Common 11:00:00 11:00:00 t [facility] it Road [facility] Results Test Description Test Time Test Comments Results Result Comments Source COMP. METABOLIC PANEL (32147) 2023-03-12 14:35:57 Test Item Value Reference Range Interpretation Comme nts NA (test code = 8700434189) 140 mmol/L 135-145 K (test code = 2305092084) 4.1 mmol/L 3.5-5.0 CL (test code = 2255959138) 102 mmol/L 98-108 CO2 TOTAL (test code = 5567502993) 26 mmol/L 23-31 AGAP (test code = 1245266455) 12 2-16 BUN (test code = 7765938251) 13 mg/dL 7-23 GLUCOSE (test code = 9591846730) 125 mg/dL 70-110 H CREATININE (test code = 0.78 mg/dL 0.50-1.04 2023272425) TOTAL BILI (test code = 0.6 mg/dL 0.1-1.6 4263497603) CALCIUM (test code = 0560675208) 9.6 mg/dL 8.6-10.6 T PROTEIN (test code = 8320183620) 8.5 g/dL 6.3-8.2 H ALBUMIN (test code = 0654294897) 4.8 g/dL 3.5-5.0 ALK PHOS (test code = 0263372790) 63 U/L 34-122 ALTv (test code = 1742-6) 25 U/L 5-35 AST(SGOT) (test code = 2772217760) 32 U/L 13-40 eGFR (test code = 9458989141) 90.7 mL/min/1.73m2 ADRY (test code = ADRY) Association of Glomerular Filtration Rate (GFR) and Staging of Kidney Disease* + +-------- + ------+| GFR (mL/min/1.73 m2) ?| With Kidney Damage ?| ?Without Kidney Damage+ +-- + +| ?>90 ?| ?Stage one ?| ? Normal ?+ +------- + -------+| ?60-89 ?| ?Stage two ?| ? Decreased GFR ? + +-------- + ------+| ?30-59 ?| ?Stage three ?| ? Stage three ? + +-------- + ------+| ?15-29 ?| ?Stage four ? | ? Stage four ?+ +------- + -------+| ?<15 (or dialysis) ? ?| ?Stage five ? | ? Stage five ?+ +------- + -------+ *Each stage assumes the associated GFR level has been in effect for at least three months. ?Stages 1 to 5, with or without kidney disease, indicate chronic kidney disease. Notes: Determination of stages one and two (with eGFR >59mL/min/1.73 m2) requires estimation of kidney damage for at least three months as defined by structural or functional abnormalities of the kidney, manifested by either:Pathological abnormalities or Markers of kidney damage (including abnormalities in the composition of the blood or urine or abnormalities in imaging tests). Lab Interpretation (test code = Abnormal 78551-1) [facility] WITH [id number] 14:30:38 Test Item Value Reference Range Interpretation Comments WBC (test code = 6.82 See_Comment [Automated 6690-2) message] The sy stem which generated this result transmitted reference range : 4.30 - 11.10 10*3/?L. The reference range was not used to interpret this result as normal/abnormal . RBC (test code = 4.44 See_Comment [Automated 789-8) message] The sy stem which generated this result transmitted reference range : 3.93 - 5.25 10*6/?L. The reference range was not used to interpret this result as normal/abnormal . HGB (test code = 14.1 g/dL 11.6-15.0 718-7) HCT (test code = 40.0 % 35.7-45.2 4544-3) MCV (test code = 90.1 fL 80.6-95.5 787-2) MCH (test code = 31.8 pg 25.9-32.8 785-6) MCHC (test code = 35.3 g/dL 31.6-35.1 H 786-4) RDW-SD (test code = 37.2 fL 39.0-49.9 L 40299-3) RDW-CV (test code = 11.4 % 12.0-15.5 L 788-0) PLT (test code = 239 See_Comment [Automated 777-3) message] The sy stem which generated this result transmitted reference range : 166 - 358 10*3/ ?L. The reference r kenya was not used to interpret this result as normal/abnormal . MPV (test code = 10.4 fL 9.5-12.9 38836-9) NRBC/100 WBC (test 0.0 See_Comment [Automat ed code = 9356710525) message] The system which generated this result transmitted reference range : 0.0 - 10.0 /100 WBCs. The refer ence range was not u sed to interpret th is result as normal/abnormal . NRBC x10^3 (test code See_Comment [Auto mated = 9545535558) message] The s ystem which generated this result transmitted reference range : 10*3/?L. The reference range was not used to interpret this result as normal/abnormal . GRAN MAT (NEUT) % 71.8 % (test code = 770-8) IMM GRAN % (test code 0.40 % = 2661130590) LYMPH % (test code = 19.8 % 736-9) MONO % (test code = 6.5 % 5905-5) EOS % (test code = 0.9 % 713-8) BASO % (test code = 0.6 % 706-2) GRAN MAT x10^3(ANC) 4.90 10*3/uL 1.88-7.09 (test code = 1299859854) IMM GRAN x10^3 (test 0.03 10*3/uL 0.00-0.06 code = 8849491274) LYMPH x10^3 (test code 1.35 10*3/uL 1.32-3.29 = 731-0) MONO x10^3 (test code 0.44 10*3/uL 0.33-0.92 = 742-7) EOS x10^3 (test code = 0.06 10*3/uL 0.03-0.39 711-2) BASO x10^3 (test code 0.04 10*3/uL 0.01-0.07 = 704-7) Lab Interpretation Abnormal (test code = 78137-6) [facility] [id number] 20:06:00 Test Item Value Reference Range Interpretation Comments POCT PREG (test code = 1605) Negative On board controls acceptable with Yes C Line (test code = 3574) POCT PREG LOT # (test code = 3577) [id number] POCT PREG TEST DATE (test 05-08-2024 code = 3576) Lab Interpretation (test code = Normal 16544-9) [facility] MOLECULAR [id number] 19:48:31 Test Item Value Reference Range Interpretation Comments POCT Molecular Strep (test code = Negative Negative 55413-1) Lab Interpretation (test code = Normal 01958-7) [id number] [facility]:00:00 Test Item Value Reference Range Interpretation Comments Result (test code = 11076-2) Negative SARS-COV 2 AntigenSARS-COV 2 Antigen"
[2023-05-18 09:39] LABS: Absolute Lymphocytes (CBC) 1.9 K/uL (0.7-4.9); Hematocrit 39.5 % (36.0-45.0); Lymphocytes % 25.7 % (15.3-44.8); MCV 90.6 fL (80-100); MPV 7.5 fL (7.6-11.3); Platelets 269 thou/uL (152-406); RBC Red Blood Cell Count 4.36 M/uL (3.86-4.86)
[2023-05-18 09:44] LABS: Urine Bacteria 20-50 /HPF (<20); Urine Bilirubin NEGATIVE (Negative); Urine Blood Negative (Negative); Urine Clarity Turbid (Clear); Urine Color Yellow (Yellow); Urine Glucose NEGATIVE (Negative); Urine Mucus 4+ /HPF (None Seen); Urine Protein 1+ (Negative); Urine RBC <5 /HPF (None Seen); Urine Urobilinogen 1+ (Normal)
[2023-05-18] MEDS ORDERED: ONDANSETRON 4 MG/2 ML VIAL ONE (09:45)
[2023-05-18] MEDS ORDERED: NA CHLORIDE 0.9% 1,000 ML ONE (09:45)
[2023-05-18] MEDS ORDERED: FAMOTIDINE 20 MG/2 ML VIAL IV ONE (09:45)
[2023-05-18 09:58] LABS: Albumin 4.2 g/dL (3.4-5.0); Bilirubin Total 0.8 mg/dL (0.2-1.0); Potassium 3.6 mEq/L (3.5-5.1); Protein, Total 8.2 g/dL (6.4-8.2)
--- NOTE | 2023-05-18 11:58 | RAD REPORT ---
EXAM DESCRIPTION: US - Pelvis Complete - 05/18/2023 11:05 am CLINICAL HISTORY: NAUSEAU, PREG COMPARISON: Transvaginal OB dated 05/18/2023 TECHNIQUE: Sonographic grayscale and color flow images of the pelvis were obtained through transvag inal and transabdominal approaches. FINDINGS: The uterus is normal in size, shape and echotexture. A single live intrauterine is visualized. [place]-rump length measures 7.6 mm, corresponding to gestational age 6 weeks, 5 days. heart rate: 138 BPM. A small yolk sac is visualized. Both ovaries were not discretely visualized due to over shadowing bowel gas. Fluid-filled tubular str ucture seen in the right adnexal region favored to represent bowel, demonstrating peristalsis. Possib ility of hydrosalpinx in this region is considered less likely. No significant pelvic ascites. IMPRESSION: Single live intrauterine , with calculated gestational age 6 weeks, 5 days. LMP was not provided for comparison. Limited visualization of the adnexal structures due to over shadowing bowel.
--- NOTE | 2023-05-18 11:59 | RAD REPORT ---
EXAM DESCRIPTION: US - Transvaginal OB - 05/18/2023 11:05 am CLINICAL HISTORY: ABD CRAMPING, COMPARISON: No comparisons TECHNIQUE: Sonographic grayscale and color flow images of the pelvis were obtained through transvag inal and transabdominal approaches. FINDINGS: The uterus is normal in size, shape and echotexture. A single live intrauterine is visualized. [place]-rump length measures 7.6 mm, corresponding to gestational age 6 weeks, 5 days. heart rate: 138 BPM. A small yolk sac is visualized. Both ovaries were not discretely visualized due to over shadowing bowel gas. Fluid-filled tubular str ucture seen in the right adnexal region favored to represent bowel, demonstrating peristalsis. Possib ility of hydrosalpinx in this region is considered less likely. No significant pelvic ascites. IMPRESSION: Single live intrauterine , with calculated gestational age 6 weeks, 5 days. LMP was not provided for comparison. Limited visualization of the adnexal structures due to over shadowing bowel.
--- NOTE | 2023-05-18 12:11 | ER ---
Nurse's Notes [facility] Name: Gloria Bacon Age: 23 yrs Sex: Female : 2000 Arrival Date: 05/18/2023 Time: 09:11 Bed 5 Private MD: Diagnosis: Nausea with vomiting, unspecified;Less than 8 weeks gestation of ;UTI/ Urinary tract infection, site not specified Presentation: 05/18 09:14 Chief complaint: Patient states: Nausea and vomiting since Thursday. Has had one episode nj1 of diarrhea. 09:14 Coronavirus screen: Vaccine status: Patient reports being unvaccinated. Ebola Screen: nj1 Patient denies travel to an Ebola-affected area in the 21 days before illness onset. Initial Sepsis Screen: Does the patient meet any 2 criteria? No. Patient's initial sepsis screen is negative. Does the patient have a suspected source of infection? No. Patient's initial sepsis screen is negative. Risk Assessment: Do you want to hurt yourself or someone else? Patient reports no desire to harm self or others. Onset of symptoms was May 15, 2023. 09:14 Method Of Arrival: Ambulatory [facility] 09:14 Acuity: PERLA 3 nj1 Historical: - Allergies: 09:20 No Known Allergies; nj1 - PMHx: 09:20 Anxiety; Depression; nj1 - Immunization history:: Client reports having NOT received the Covid vaccine. - Social history:: Smoking status: Reported history of juuling and/or vaping. Screenin:36 [facility] ED Fall Risk Assessment (Adult) Score/Fall Risk Level 0 - 2 = Low Risk. Abuse iw screen: Denies threats or abuse. Denies injuries from another. Nutritional screening: No deficits noted. Tuberculosis screening: No symptoms or risk factors identified. Assessment: 09:36 General: Appears in no apparent distress. Behavior is calm, cooperative. Pain: iw Complains of pain in back. Pain: Pain currently is 2 out of 10 on a pain scale. Neuro: Level of Consciousness is awake, alert, obeys commands. GI: Abdomen is non-distended, Reports lower abdominal pain, upper abdominal pain, diarrhea, nausea, vomiting. : Reports dark colored urine. Derm: Skin is intact, is healthy with good turgor. Musculoskeletal: Range of motion: intact in all extremities. 10:06 Reassessment: Patient appears in no apparent distress at this time. Patient and/or iw family updated on plan of care and expected duration. Pain level reassessed. Patient is alert, oriented x 3, equal unlabored respirations, skin warm/dry/pink. 10:25 Reassessment: Patient appears in no apparent distress at this time. No changes from ld1 previously documented assessment. Patient and/or family updated on plan of care and expected duration. Pain level reassessed. Patient is alert, oriented x 3, equal unlabored respirations, skin warm/dry/pink. Vital Signs: 09:14 BP 137 / 78; Pulse 88; Resp 16; Temp 98.5(O); Pulse Ox 99% on R/A; Weight 70.31 kg; nj1 Height 5 ft. 7 in. ; 10:25 BP 131 / 85; Pulse 70; Resp 18; Pulse Ox 100% on R/A; ld1 11:27 BP 114 / 69; Pulse 56; Resp 18; Pulse Ox 100% on R/A; ld1 09:14 Body Mass Index 24.28 (70.31 kg, 170.18 cm) nj1 ED Course: 09:13 Patient arrived in ED. rg4 09:13 [facility]ac[facility] kb 09:13 Noah Marina MD is Attending Physician. kb 09:20 Triage completed. nj1 09:21 Arm band placed on. nj1 09:24 Initial lab(s) drawn, by il, sent to lab. Inserted saline lock: 22 gauge in left iw antecubital area, using aseptic technique. Blood collected. 09:35 Karen Serna, RN is Primary Nurse. iw 09:35 Urinalysis w/ reflexes Sent. iw 09:35 Test, Urine Sent. iw 10:06 Abo/rh Typing Sent. iw 10:06 Quantitative Hcg Sent. iw 11:06 US Transvaginal Ob In Process Unspecified. EDMS 11:06 Pelvis Complete In Process Unspecified. EDMS 11:21 Patient has correct armband on for positive identification. Provided Education on: . iw 12:24 No provider procedures requiring assistance completed. IV discontinued, intact, ld1 bleeding controlled, No redness/swelling at site. Administered Medications: 09:37 Drug: NS 0.9% IV 1000 ml IV at 1 bolus Per protocol; 1000 mL bolus Route: IV; Rate: 1 ld1 bolus; Site: left antecubital; 10:35 Follow up: IV Status: Completed infusion iw 09:37 Drug: Famotidine IVP 20 mg IVP once; dilute with 10 mL 0.9% NaCl; give over 2 minutes ld1 Route: IVP; Site: left antecubital; 10:10 Follow up: Response: No adverse reaction iw 09:37 Drug: Ondansetron IVP 4 mg IVP once; over 2 minutes Route: IVP; Site: left antecubital; ld1 10:00 Follow up: Response: No adverse reaction iw 11:40 Drug: Promethazine IVP 6.25 mg IVP once Route: IVP; Site: left antecubital; ld1 12:00 Follow up: Response: No adverse reaction iw Medication: 09:36 VIS not applicable for this client. iw Outcome: 12:11 Discharge ordered by . kb 12:24 Discharged to home ambulatory, with family, ld1 12:24 Condition: stable 12:24 Discharge instructions given to patient, family, Instructed on discharge instructions, follow up and referral plans. medication usage, Demonstrated understanding of instructions, follow-up care, medications, Prescriptions given X 2, 12:24 Patient left the ED. ld1 Signatures: Dispatcher [employer] Kierra Xiao, BACCARAT DEALER-C BACCARAT DEALER-Karen Fajardo, Gail Nicholson RN rg4 Freya Arrieta RN RN ld1 Dana Johns RN RN nj1
--- NOTE | 2023-05-18 12:11 | EDPHYS ---
Physician Documentation [facility] Name: Gloria Bacon Age: 23 yrs Sex: Female : 2000 Arrival Date: 05/18/2023 Time: 09:11 Bed 5 Private MD: ED Physician Noah Marina HPI: 05/18 09:17 This 23 yrs old Female presents to ER via Unassigned with complaints of Nausea/Vomiting.kb 09:17 The patient presents to the emergency department with nausea, vomiting. Onset: The kb symptoms/episode began/occurred 4 day(s) ago. Possible causes: unknown. The symptoms are aggravated by nothing. The symptoms are alleviated by nothing. Associated signs and symptoms: Pertinent positives: nausea, vomiting. Severity of symptoms: At their worst the symptoms were moderate in the emergency department the symptoms are unchanged. The patient has not experienced similar symptoms in the past. The patient has not recently seen a physician. Pt reports she nausea and vomiting for 4 days. States she had diarrhea once. Denies fever, chills. Had covid last week. States she hasn't been able to keep anything down. Has had small amounts of urine that has been dark. Historical: - Allergies: 09:20 No Known Allergies; nj1 - PMHx: 09:20 Anxiety; Depression; nj1 - Immunization history:: Client reports having NOT received the Covid vaccine. - Social history:: Smoking status: Reported history of juuling and/or vaping. ROS: 09:17 Constitutional: Negative for fever, chills, and weight loss, kb 09:17 Abdomen/GI: Positive for nausea and vomiting, 09:17 All other systems are negative, Exam: 09:17 Constitutional: This is a well developed, well nourished patient who is awake, alert, kb and in no acute distress. Head/Face: Normocephalic, atraumatic. ENT: Moist Mucous membranes Cardiovascular: Regular rate Respiratory: Respirations even and unlabored. No increased work of breathing. Talking in full sentences Abdomen/GI: Soft, non-tender. No distention Skin: Warm, dry with normal turgor. Normal color. MS/ Extremity: Pulses equal, no cyanosis. Neurovascular intact. Full, normal range of motion. Neuro: Awake and alert, GCS 15, oriented to person, place, time, and situation. Moves all extremities. Normal gait. Vital Signs: 09:14 BP 137 / 78; Pulse 88; Resp 16; Temp 98.5(O); Pulse Ox 99% on R/A; Weight 70.31 kg; nj1 Height 5 ft. 7 in. ; 10:25 BP 131 / 85; Pulse 70; Resp 18; Pulse Ox 100% on R/A; ld1 11:27 BP 114 / 69; Pulse 56; Resp 18; Pulse Ox 100% on R/A; ld1 09:14 Body Mass Index 24.28 (70.31 kg, 170.18 cm) nj1 MDM: 09:14 Patient medically screened. kb 09:19 Differential diagnosis: Nonspecific abd pain, viral gastroenteritis, covid, flu. Data kb reviewed: vital signs, nurses notes. Historians other than the Patient: Parent: mother. 10:15 ED course: Pt informed of positive UPT. Pt reports LMP 3 weeks ago. States she stopped kb taking BCP 2 months ago because she had been on them for years. Denies vaginal bleeding at this time. reports abd cramping. 12:10 Counseling: I had a detailed discussion with the patient and/or guardian regarding the kb historical points, exam findings, and any diagnostic results supporting the discharge/admit diagnosis, lab results, radiology results, the need for outpatient follow up, an OB/Gyne specialist, to return to the emergency department if symptoms worsen or persist or if there are any questions or concerns that arise at home. 05/18 09:17 Order name: CBC with Diff; Complete Time: 10:00 kb 05/18 09:17 Order name: CMP; Complete Time: 10:00 kb 05/18 09:17 Order name: Lipase; Complete Time: 10:00 kb 05/18 09:17 Order name: Test, Urine; Complete Time: 09:45 kb 05/18 09:17 Order name: Urinalysis w/ reflexes; Complete Time: 09:45 kb 05/18 09:45 Order name: Abo/rh Typing; Complete Time: 10:40 kb 05/18 09:45 Order name: Quantitative Hcg; Complete Time: 10:52 kb 05/18 10:18 Order name: US Transvaginal Ob; Complete Time: 11:59 kb 05/18 11:06 Order name: Pelvis Complete; Complete Time: 11:59 EDMS 05/18 09:17 Order name: IV Saline Lock; Complete Time: 09:35 kb 05/18 09:17 Order name: Labs collected and sent; Complete Time: 09:35 kb 05/18 09:45 Order name: NPO; Complete Time: 09:55 kb Administered Medications: 09:37 Drug: NS 0.9% IV 1000 ml IV at 1 bolus Per protocol; 1000 mL bolus Route: IV; Rate: 1 ld1 bolus; Site: left antecubital; 10:35 Follow up: IV Status: Completed infusion iw 09:37 Drug: Famotidine IVP 20 mg IVP once; dilute with 10 mL 0.9% NaCl; give over 2 minutes ld1 Route: IVP; Site: left antecubital; 10:10 Follow up: Response: No adverse reaction iw 09:37 Drug: Ondansetron IVP 4 mg IVP once; over 2 minutes Route: IVP; Site: left antecubital; ld1 10:00 Follow up: Response: No adverse reaction iw 11:40 Drug: Promethazine IVP 6.25 mg IVP once Route: IVP; Site: left antecubital; ld1 12:00 Follow up: Response: No adverse reaction iw Disposition Summary: 05/18/23 12:11 Discharge Ordered Notes: Location: Home kb Condition: Stable kb Diagnosis - Nausea with vomiting, unspecified kb - Less than 8 weeks gestation of kb - UTI/ Urinary tract infection, site not specified kb Followup: kb - With: Emergency Department - When: As needed - Reason: Worsening of condition Followup: kb - With: Private Physician - When: 2 - 3 days - Reason: Recheck today's complaints, Continuance of care, Re-evaluation by your physician Discharge Instructions: - Discharge Summary Sheet kb - Morning Sickness, [id number] kb - First Trimester of , [id number] kb - Nausea and Vomiting, Adult, [id number] kb Forms: - Medication Reconciliation Form kb - Thank You Letter kb - Antibiotic Education kb - Prescription Opioid Use kb - Patient Portal Instructions kb - Leadership Thank You Letter kb Prescriptions: - Diclegis 10-10 mg Oral tablet, delayed release (enteric coated) - take 1 tablet ORAL route every morning As needed; 10 tablet; Refills: 0, kb Product Selection Permitted - Macrobid 100 mg Oral Capsule - take 1 capsule ORAL route every 12 hours for 7 days; 14 capsule; Refills: 0, kb Product Selection Permitted Signatures: Dispatcher [employer] Kierra Xiao, NICHOLAS MACDONALD-Freya Hart RN RN ld1 Dana Johns RN RN nj1 Karen Serna RN iw
[2023-05-18 12:46] VITALS: TEMP 98.5
[2023-05-18 12:47] VITALS: O2SAT 100
[2023-05-18 12:49] VITALS: BP 114/69
== END 2023-05-18 12:24 | disposition home or self-care (01) ==
LOC: ER 09:11
DX: O21.9 Vomiting of pregnancy, unspecified (principal); O23.41 Unspecified infection of urinary tract in pregnancy, first trimester; N39.0 Urinary tract infection, site not specified; Z3A.01 Less than 8 weeks gestation of pregnancy
CPT/HCPCS: 96361; 85025; 81001; 36415; 86900; 81025; 86901; 84702; 83690; 80053; 76856; 76817; 96375; 96374; 99284; J2405; J7030